=== PATIENT | female | born 1935 | race Caucasian/White ===

== ENCOUNTER 2020-02-08 00:46 | Emergency (ER) | payer MEDICARE, SELFPAY ==
--- NOTE | ~2020-02-08 | XR_ITS ---
EXAMINATION: XR chest 2V DATE: 02/08/2020 01:17 INDICATION: Generalized chest pain TECHNIQUE: AP and lateral views of the chest are obtained. COMPARISON: 07/01/2019 FINDINGS: The lungs are free of acute opacities. There is a chronic subpleural reticular pattern of t he lungs, consistent with chronic interstitial lung disease. There is no pleural effusion or pneumoth orax. The cardiomediastinal silhouette is normal. There is moderate thoracic spondylosis. There are c hanges of right total shoulder arthroplasty. Surgical clips in the right upper quadrant are likely fr om prior cholecystectomy. IMPRESSION: 1. No acute cardiopulmonary abnormality. Reviewed, dictated and finalized at location A.
[2020-02-08 00:41] VITALS: BP 183/89; PULSE 76; RESP 18; TEMP 36.4; O2SAT 99
[2020-02-08 00:46] VITALS: PULSE 75
--- NOTE | 2020-02-08 00:47 | ECG_ITS ---
Measurements Intervals [place] Rate: 74 P: -2 [place]: 134 QRS: -14 QRSD: 81 T: 4 QT: 378 QTc: 420 Interpretive Statements SINUS RHYTHM BORDERLINE ST-T WAVE ABNORMALITY- INF/LAT LEADS BASELINE ARTIFACT- I, II, III, AVR, AVL, AVF BORDERLINE ECG Electronically Signed On 02-08-2020 8:07:20 CDT by Daryl Webster D.O.
[2020-02-08 01:07] LABS: Basophils Absolute Auto 0.1 K/mm3 (0.0-0.1); Basophils Percent Auto 0.8 % (0.2-1.2); Eosinophils Absolute Auto 0.1 K/mm3 (0-0.3); Eosinophils Percent Auto 0.7 % (0-4.4); Hematocrit 36.2 % (37.0-47.0); Hemoglobin 11.4 g/dL (12.0-15.0); Immature Granulocyte Absolute 0.03 K/mm3 (0.00-0.031); Immature Granulocyte Percent A 0.4 % (0-0.5); Lymphocytes Absolute Auto 1.66 K/mm3 (0.9-3.2); Lymphocytes Percent Auto 23.2 % (18.3-44.2); Mean Corpuscular HGB Conc 31.5 g/dl (32-36); Mean Corpuscular Hemoglobin 30.2 pg (26-34); Monocytes Absolute Auto 1.4 K/mm3 (0.1-0.6); Monocytes Percent Auto 19.3 % (2.6-8.5); Neutrophils Percent Auto 55.6 % (45.5-73.1); Platelet Count Result 164 k/mm3 (150-375); Red Blood Count 3.77 M/mm3 (4.2-5.4); White Blood Count 7.2 K/mm3 (4.5-10.0)
--- NOTE | 2020-02-08 01:11 | ED.CHESTPAIN ---
HPI - Chest Pain General Chief Complaint: Chest Pain Stated Complaint: cp/dizziness History of Present Illness HPI narrative: 84 yo female w/ h/o dementia, chf, CKD, Hypertension, IBS, Paroxysmal atrial fibrillation BIBEMS for chest pain. She is an unreliable historian but reports that she had been having pain for a long time. The pain resolved prior to her arrival here and she has no complaints. History limited by dementia Related Data Home Medications Medication Instructions Recorded Confirmed acetaminophen 650 mg 650 mg PO Q12H 06/27/19 tablet,extended release apixaban 2.5 mg tablet 2.5 mg PO BID 06/27/19 Poly-Iron 150 Forte 1 cap PO BID 06/28/19 06/28/19 acetaminophen [Tylenol] 325 mg PO Q4H PRN 06/28/19 06/28/19 aspirin 81 mg PO DAILY 06/28/19 06/28/19 famotidine 20 mg PO BID 06/28/19 06/28/19 midodrine 10 mg PO TID 06/28/19 06/28/19 polyethylene glycol 3350 [Miralax] 17 g PO DAILY 06/28/19 06/28/19 potassium chloride 20 meq PO BID 06/28/19 06/28/19 vitamin [id number] acid 2 tablet PO DAILY 06/28/19 06/28/19 Allergies Allergy/AdvReac Type Severity Reaction Status Date / Time No Known Allergies Allergy Unknown Verified 10/13/19 09:14 Review of Systems Review of Systems: All systems reviewed & are unremarkable except as noted in HPI and below Constitutional: Constitutional: Denies fever(s) Cardiovascular: Cardiovascular: Reports chest pain Respiratory: Respiratory: Denies dyspnea Gastrointestinal: Gastrointestinal: Denies nausea Musculoskeletal: Musculoskeletal: Denies back pain Neurologic: Denies dizziness and Denies weakness [facility] Past Medical History Medical History Anemia Appendicitis Bilateral cataracts Chronic bilateral thoracic back pain Chronic fatigue Chronic kidney disease, stage 3 (moderate) Confusion Diastolic congestive heart failure Eczema Gallbladder disease GI bleed Glaucoma Hx of adenomatous colonic polyps Hypercholesterolemia Hyperlipidemia Hypertension IBS (irritable bowel syndrome) Iron deficiency anemia Mild anemia OAB (overactive bladder) Orthostatic hypotension Orthostatic hypotension Osteoarthritis Paroxysmal atrial fibrillation Paroxysmal atrial fibrillation Status post cardioversion in 2014 x2. No longer on anticoagulation due to recurrent falls. Pneumonia Post menopausal syndrome Primary osteoarthritis of both knees Stenosis of right subclavian artery Vitamin D deficiency Surgical History Surgical History H/O bilateral cataract extraction H/O cataract removal with insertion of prosthetic lens H/O eye surgery Bilateral retinas H/O: hysterectomy History of appendectomy History of appendectomy History of cholecystectomy History of cholecystectomy History of hysterectomy History of right shoulder replacement S/P left knee arthroscopy S/P right rotator cuff repair S/P right rotator cuff repair Family History Family History Father Family history of cardiovascular disease Patient's father is Family history of heart disease in male family member before age 55 Mother Family history of cardiovascular disease Patient's mother is Family history of heart disease in male family member before age 55 Sibling Family history of cardiovascular disease Patient's sister is Family history of heart disease in male family member before age 55 Other Diabetes mellitus Heart disease Hypertension Malignant neoplasm of prostate Social History Social History Social History: The patient is currently at [facility] for rehab. Prior to that, she was living independently. Her son and daughter, Yelena, are her surrogate decision makers. She is listed as a full
[2020-02-08 01:18] LABS: Prothrombin Time 12.6 Seconds (11.1-14.7)
[2020-02-08 01:19] LABS: Partial Thromboplastin Time 28.4 SECONDS (22.3-36.8)
[2020-02-08 01:22] LABS: Blood Urea Nitrogen 23 mg/dL (7-17); Calcium 10.1 mg/dL (8.4-10.2); Carbon Dioxide 22 mmol/L (22-30); Chloride 105 mmol/L (98-107); Estimated Glomerular Filt Rate 47; Glucose 99 mg/dL (65-105); Potassium 4.4 mmol/L (3.4-5.0); Sodium 135 mmol/L (137-145)
[2020-02-08] MEDS: ASPIRIN 81 MG CHEWABLE TABLET 324 MG PO (01:33)
[2020-02-08 01:34] LABS: Troponin I 0.023 ng/mL (0.000-0.034)
[2020-02-08 01:54] VITALS: BP 160/83; PULSE 74; RESP 18; O2SAT 99
[2020-02-08 03:00] VITALS: BP 138/70; PULSE 62; RESP 18; O2SAT 99
[2020-02-08 04:29] LABS: Troponin I 0.019 ng/mL (0.000-0.034)
[2020-02-08 04:41] VITALS: BP 135/72; PULSE 60; RESP 18; O2SAT 96
--- NOTE | 2020-02-08 04:43 | PC.NURSE ---
Daughter called at this time and updated on pt status.
[2020-02-08 05:41] VITALS: BP 129/64; PULSE 64; RESP 18; O2SAT 98
== END 2020-02-08 05:45 ==
PROVIDERS: Emergency Provider Emergency Medicine; PCP Internal Medicine
DX: R07.9 Chest pain, unspecified (principal); I48.0 Paroxysmal atrial fibrillation; I13.0 Hypertensive heart and chronic kidney disease with heart failure and stage 1 through stage 4 chronic kidney disease, or unspecified chronic kidney disease; N18.3 Chronic kidney disease, stage 3 (moderate); I50.30 Unspecified diastolic (congestive) heart failure; Z79.01 Long term (current) use of anticoagulants; K58.9 Irritable bowel syndrome, unspecified; Z79.82 Long term (current) use of aspirin; H40.9 Unspecified glaucoma; E78.00 Pure hypercholesterolemia, unspecified; D50.9 Iron deficiency anemia, unspecified; N32.81 Overactive bladder; M19.90 Unspecified osteoarthritis, unspecified site; E55.9 Vitamin D deficiency, unspecified; Z98.49 Cataract extraction status, unspecified eye; Z96.1 Presence of intraocular lens; Z96.611 Presence of right artificial shoulder joint; R94.31 Abnormal electrocardiogram [ECG] [EKG]
CPT/HCPCS: 36415; 71046; 80048; 84484; 85025; 85610; 85730; 93005; 99284; A9270

== ENCOUNTER 2020-07-07 16:58 | Inpatient (IN) | payer MEDICARE, SELFPAY ==
[2020-07-07] VITALS (9 sets, daily range): BP systolic 112–168; BP diastolic 71–100; PULSE 80–92; RESP 15–24; TEMP 36.2–36.7; O2SAT 87–100; BMI 20.2
--- NOTE | ~2020-07-07 | CT_ITS ---
EXAMINATION: CT brain wo con INDICATION: Altered mental status COMPARISON: 08/24/2019 TECHNIQUE: Standard unenhanced head CT. The dose-length product (DLP) was 605.33 mGy-cm. The mA was a djusted according to patient size. Iterative reconstruction technique was employed. FINDINGS: There is no acute intraparenchymal hemorrhage. No evidence of mass lesion. No evidence of a cute infarction. An old lacunar infarct is noted in the right basal ganglia. There is moderate perive ntricular and subcortical hypodensity probably related to small vessel ischemic disease. There is mod erate prominence of the sulci and ventricles related to cerebral atrophy. Intracranial calcified cere bral atherosclerosis is noted. There are no extra-axial collections. There is no mass effect or midli ne shift. Changes in the globes are likely from ocular lens surgery. The visualized sinuses and masto id air cells are well aerated. IMPRESSION: 1. No acute intracranial abnormality. 2. Age related findings. Reviewed, dictated and finalized at location A. [employer]
--- NOTE | ~2020-07-07 | XR_ITS ---
XR knee LT 3V DATE: 07/07/2020 18:01 INDICATION: Fall. Left knee injury, pain TECHNIQUE: 4 views including Crosstable lateral COMPARISON: 11/16/2008 left knee 04/12/2016 left knee FINDINGS: There is tricompartment osteoarthritis, most pronounced at the medial compartment and moder ately severe loss of joint space at the medial compartment. Diffuse osteopenia. No fracture or dislocation, periosteal reaction or bone destruction, radiopaque intra-articular loose body or chondrocalcinosis or joint effusion is evident. Arterial calcifications. IMPRESSION: Tricompartment osteoarthritis, most pronounced at the medial compartment Osteopenia No recent fracture or dislocation or joint effusion is detected Reviewed, dictated and finalized at location A. OGRAPHIC DRAFTER IMPRESSION: Tricompartment osteoarthritis, most pronounced at the medial compar tment Osteopenia No recent fracture or dislocation or joint effusion is detected
--- NOTE | ~2020-07-07 | XR_ITS ---
EXAMINATION: XR surgery orthopedic DATE: 07/09/2020 16:00 INDICATION: Left hip gamma nailing TECHNIQUE: 7 fluoroscopic images of the left hip were obtained during procedure performed by Dr. Aminta quevedo. Radiologist was not present for the imaging or procedure. The amount of fluoroscopy time used during this procedure was 1.5 minutes. COMPARISON: 07/07/2020 FINDINGS: Interval open reduction and internal fixation of an intratrochanteric fracture of the proximal left f emur. Fractures fixed with an antegrade intramedullary agustin with femoral neck dynamic compression scre w and distal interlocking screw. Alignment appears near-anatomic. No other fractures identified. Mild osteoarthritis at the left hip. IMPRESSION: 1. Near-anatomic alignment post ORIF of an intratrochanteric fracture of the proximal left femur. See procedure note for further detail. Reviewed, dictated and finalized at [facility]. ER/WAITRESS TAVERN IMPRESSION: 1. Near-anatomic alignment post ORIF of an intratrochanteric fracture of the pr oximal left femur. See procedure note for further detail.
--- NOTE | ~2020-07-07 | XR_ITS ---
EXAMINATION: XR chest 2V DATE: 07/16/2020 13:03 INDICATION: Leukocytosis. TECHNIQUE: Frontal and lateral views of the chest were obtained. COMPARISON: Chest single view 07/13/2020, chest CT 01/13/2007, chest 2 views 02/08/2020 FINDINGS: The patient is rotated to her right. The lung volumes are normal. There is a diffuse inters titial pattern in the lungs. No pleural effusion or pneumothorax. The heart size is normal. Surgical clips in the right upper quadrant are likely from cholecystectomy. There is a total right shoulder ar throplasty. Again seen is a burst fracture of T11. There is a burst fracture of L1 without change fro m 07/13/20, new from 02/08/2020. IMPRESSION: 1. Chronic diffuse interstitial pattern in the lungs, likely mild chronic interstitial lung disease. Reviewed, dictated and finalized at location A. S AND SERVICE ENGINEER IMPRESSION: 1. Chronic diffuse interstitial pattern in the lungs, likely mild chronic inter stitial lung disease.
--- NOTE | ~2020-07-07 | XR_ITS ---
XR hip LT 2V w AP pelvis DATE: 07/07/2020 18:00 INDICATION: Fall. Left hip pain. TECHNIQUE: AP pelvis. AP and crosstable lateral views of left hip. COMPARISON: 06/28/2019 pelvis and right hip FINDINGS: Diffuse osteopenia. Normal alignment at the pubic symphysis and sacroiliac joints. No pelvic fracture is evident. Compression screw and agustin of proximal right femur for internal fixation of previous comminuted intert rochanteric right proximal femoral fracture of 06/28/2019. There is an acute comminuted intertrochanteric fracture of the left hip with varus deformity. IMPRESSION: Comminuted intertrochanteric left hip fracture with varus deformity Diffuse osteopenia Status post ORIF right intertrochanteric hip fracture Reviewed, dictated and finalized at location A. [employer] FI[employer] TECHNICIAN
--- NOTE | ~2020-07-07 | XR_ITS ---
EXAMINATION: XR chest 1V portable DATE: 07/13/2020 06:29 INDICATION: Crackles on lung auscultation. Sepsis. COVID-19 negative on 07/12/2020. TECHNIQUE: A single frontal view of the chest was obtained. COMPARISON: Chest 2 views 02/08/2020, chest single view 07/01/2019, chest CT 01/13/2007 FINDINGS: The patient is rotated to her right. The lung volumes are normal. There is a diffuse inters titial pattern in the lungs with chronic architectural distortion in right midlung zone. No pleural e ffusion or pneumothorax. The heart size is normal. There is a right shoulder arthroplasty. Surgical c lips in the right upper quadrant are likely from cholecystectomy. IMPRESSION: 1. Worsened diffuse interstitial pattern in the lungs, likely a combination of mild pulmonary edema a nd chronic interstitial lung disease. Reviewed, dictated and finalized at location A. TRICAL TECH IMPRESSION: 1. Worsened diffuse interstitial pattern in the lungs, likely a combination of mild pulmonary edema and chronic interstitial lung disease.
--- NOTE | 2020-07-07 17:28 | ED.FALL ---
HPI - Fall General Chief Complaint: Fall Stated Complaint: FALL/LEG PAIN Time Seen by Provider: 07/07/20 17:05 Source: patient Mode of arrival: EMS Limitations: no limitations History of Present Illness HPI Narrative: Patient is an 84-year-old female complaining of left hip and left knee pain after she slipped and fell landing on her left side tonight. Patient states her pain is an 8 out of 10, aching, nonradiating. Patient denies any symptoms prior to the fall. Patient denies any head, neck, chest, back, abdomen or any other extremity pain/injury. Related Data Home Medications Medication Instructions Recorded Confirmed acetaminophen 650 mg 650 mg PO Q12H 06/27/19 07/07/20 tablet,extended release Poly-Iron 150 Forte 1 cap PO BID 06/28/19 07/07/20 polyethylene glycol 3350 [Miralax] 17 g PO DAILY 06/28/19 07/07/20 vitamin V36-rqmbz acid 2 tablet PO DAILY 06/28/19 07/07/20 ferrous sulfate 07/07/20 Allergies Allergy/AdvReac Type Severity Reaction Status Date / Time No Known Allergies Allergy Unknown Verified 10/13/19 09:14 Review of Systems Review of Systems: All systems reviewed & are unremarkable except as noted in HPI and below Constitutional: Constitutional: Denies body ache(s), Denies chills, Denies excessive sweating, Denies fatigue, Denies fever(s), Denies headache(s), Denies lethargy, Denies malaise, Denies weakness and Denies weight loss Eyes: Eyes: Denies blurry vision, Denies change in vision and Denies loss of vision ENT: Denies dizziness, Denies ear discharge, Denies headache(s), Denies lip swelling, Denies epistaxis, Denies nasal congestion, Denies neck pain, Denies throat swelling and Denies tongue swelling Cardiovascular: Cardiovascular: Denies chest pain, Denies chest pain at rest, Denies chest pain with activity, Denies diaphoresis, Denies rapid heart rate, Denies edema, Denies irregular heart rhythm, Denies lightheadedness, Denies palpitations, Denies dyspnea and Denies dyspnea on exertion Respiratory: Respiratory: Denies chest congestion, Denies cough, Denies hemoptysis, Denies dyspnea and Denies dyspnea on exertion Gastrointestinal: Gastrointestinal: Denies abdominal pain, Denies melena, Denies hematochezia, Denies diarrhea, Denies nausea, Denies vomiting and Denies hematemesis Musculoskeletal: Musculoskeletal: Denies deformity, Denies joint swelling, Denies neck pain and Denies numbness Neurologic: Denies Abnormal speech present, Denies confusion, Denies dizziness, Denies headache(s), Denies focal weakness, Denies loss of vision, Denies numbness, Denies Other visual disturbances, Denies Sensory deficit (Neuro) and Denies weakness Psychiatric: Psychiatric: Denies confusion, Denies depression, Denies auditory hallucinations, Denies homicidal ideation and Denies suicidal ideation Endocrine: Endocrine: Denies cold intolerance, Denies excessive sweating, Denies fatigue, Denies heat intolerance and Denies palpitations Hematologic/Lymphatic: Hematologic/Lymphatic: Denies easy bleeding and Denies easy bruising Allergic/Immunologic: Allergic/Immunologic: Denies lip swelling, Denies throat swelling and Denies tongue swelling [facility] Past Medical History Medical History (Updated 07/07/20 @ 20:24 by Elan Larios MD) Anemia Appendicitis Bilateral cataracts Chronic bilateral thoracic back pain Chronic fatigue Chronic kidney disease, stage 3 (moderate) Confusion Diastolic congestive heart failure Eczema Gallbladder disease GI bleed Glaucoma Hx of adenomatous colonic polyps Hypercholesterolemia Hyperlipidemia Hypertension IBS (irritable bowel syndrome) Iron deficiency anemia Mild anemia OAB (overactive bladder) Orthostatic hypotension Orthostatic hypotension Osteoarthritis Paroxysmal atrial fibrillation Paroxysmal atrial fibrillation Status post cardioversion in 2014 x2. No longer on anticoagulation due to recurrent falls. Pneumonia Post menopausal syndrome Primary osteoarthritis of both knee
[2020-07-07] MEDS: ONDANSETRON INJ 4 MG/2 ML VIAL IV PUSH (18:14)
--- NOTE | 2020-07-07 18:15 | PC.NURSE ---
Pt returns from xray, meds given IVP. Note now that left leg is shortened and slightly rotated externally. Pulse present.
[2020-07-07] MEDS: HYDROmorphone HCL INJ (*CRX) 1 MG/ML SYR 0.5 MG IV PUSH (18:16)
--- NOTE | 2020-07-07 18:25 | PC.NURSE ---
Note while drawing patient's blood that her pulse oximetry dropped to 88-89% on room air. Pt placed on o2 at 2L/nc. Dr. Larios made aware.
[2020-07-07 18:47] LABS: Prothrombin Time 13.4 Seconds (11.1-14.7)
[2020-07-07 18:48] LABS: Partial Thromboplastin Time 28.1 SECONDS (22.3-36.8)
[2020-07-07 18:49] LABS: Alanine Aminotransferase 14 U/L (4-35); Albumin Level 3.9 g/dL (3.5-5.1); Alkaline Phosphatase 157 U/L (38-126); Anion Gap 9 mmol/L (8-16); Aspartate Amino Transferase 25 U/L (14-36); Bilirubin,Total 0.4 mg/dL (0.2-1.3); Blood Urea Nitrogen 27 mg/dL (7-17); Calcium 9.4 mg/dL (8.4-10.2); Carbon Dioxide 24 mmol/L (22-30); Chloride 105 mmol/L (98-107); Estimated CRCL calculation 23 ml/min; Estimated Glomerular Filt Rate 43; Glucose 119 mg/dL (65-105); Potassium 4.5 mmol/L (3.4-5.0); Sodium 138 mmol/L (137-145)
[2020-07-07 19:01] LABS: Basophils Percent Auto 0.2 % (0.2-1.2); Eosinophils Percent Auto 0.2 % (0-4.4); Hemoglobin 10.7 g/dL (12.0-15.0); Immature Granulocyte Percent A 1.5 % (0-0.5); Lymphocytes Absolute Auto 0.84 K/mm3 (0.9-3.2); Lymphocytes Percent Auto 6.1 % (18.3-44.2); Mean Corpuscular HGB Conc 31.5 g/dl (32-36); Mean Corpuscular Hemoglobin 29.7 pg (26-34); Mean Corpuscular Volume 94.4 fl (80-100); Mean Platelet Volume 12.4 fl (7.4-10.4); Monocytes Absolute Auto 2.1 K/mm3 (0.1-0.6); Monocytes Percent Auto 15.2 % (2.6-8.5); Neutrophils Absolute Auto 10.5 K/mm3 (1.3-6.7); Neutrophils Percent Auto 76.8 % (45.5-73.1); Platelet Count Result 223 k/mm3 (150-375); Red Cell Distribution Width 15.1 % (11.5-14.5); White Blood Count 13.7 K/mm3 (4.5-10.0)
--- NOTE | 2020-07-07 19:32 | PC.NURSE ---
Report to CHUCK Squires, to continue care.
--- NOTE | 2020-07-07 20:53 | ECG_ITS ---
Measurements Intervals [place] Rate: 93 P: 12 [place]: 114 QRS: 15 QRSD: 74 T: 18 QT: 350 QTc: 437 Interpretive Statements SINUS RHYTHM WITH SHORT WI INTERVAL BORDERLINE ST ABNORMALITY- ANTEROLATERAL LEADS BASELINE ARTIFACT- I, II, III, AVR, AVL, AVF BORDERLINE ECG Electronically Signed On 07-08-2020 8:05:10 [employer]HER [employer] CRUSHER by Daryl Webster D.O.
[2020-07-07] MEDS: LORazepam INJ (*CRX) 2 MG/ML VIAL 0.5 MG IV PUSH (21:05)
--- NOTE | 2020-07-07 21:30 | PM.IMHP ---
H&P: HPI History of Present Illness Date/Time: 07/07/20 21:30 Chief complaint: Left Hip Fracture Narrative: This is an 84 year old female with known paroxysmal atrial fibrillation who has not been compliant with her anticoagulants, HTN, hyperlipidemia, and Diastolic heart failure who presented to the hospital today after suffering a fall onto her left side today at Assisted Living. Apparently the patient was found on the ground and she believes that she just slipped. She denies any head trauma or loss of consciousness. The patient could not ambulate after her fall. She denies any other associated symptoms such as chest pain, palpitations, shortness of breath, cough, fevers, chills, nausea, vomiting, abdominal pain, dysuria, diarrhea or rectal bleeding. Hip xray films demonstrated a comminuted intertrochanteric left hip fracture with varus deformity. Orthopedic Surgeon has been consulted by ER provider. During my encounter with the patient she has no other complaints. Review of Systems Review of Systems: All systems reviewed & are unremarkable except as noted in HPI and below PMFSH Past Medical History Medical History Anemia Appendicitis Bilateral cataracts Chronic bilateral thoracic back pain Chronic fatigue Chronic kidney disease, stage 3 (moderate) Confusion Diastolic congestive heart failure Eczema Gallbladder disease GI bleed Glaucoma Hx of adenomatous colonic polyps Hypercholesterolemia Hyperlipidemia Hypertension IBS (irritable bowel syndrome) Iron deficiency anemia Mild anemia OAB (overactive bladder) Orthostatic hypotension Orthostatic hypotension Osteoarthritis Paroxysmal atrial fibrillation Paroxysmal atrial fibrillation Status post cardioversion in 2014 x2. No longer on anticoagulation due to recurrent falls. Pneumonia Post menopausal syndrome Primary osteoarthritis of both knees Stenosis of right subclavian artery Vitamin D deficiency Surgical History Surgical History H/O bilateral cataract extraction H/O cataract removal with insertion of prosthetic lens H/O eye surgery Bilateral retinas H/O: hysterectomy History of appendectomy History of appendectomy History of cholecystectomy History of cholecystectomy History of hysterectomy History of right shoulder replacement S/P left knee arthroscopy S/P right rotator cuff repair S/P right rotator cuff repair Family History Family History Father Family history of heart disease in male family member before age 55 Family history of cardiovascular disease Patient's father is Mother Family history of heart disease in male family member before age 55 Family history of cardiovascular disease Patient's mother is Sibling Family history of heart disease in male family member before age 55 Family history of cardiovascular disease Patient's sister is Social History Social History Social History: The patient is currently at [facility] for rehab. Prior to that, she was living independently. Her son and daughter, Yelena, are her surrogate decision makers. She is listed as a full code. Her primary care provider is Dr. Mandy Malin. Smoking status: Never smoker Second hand tobacco smoke exposure: Yes Alcohol intake: former Drinks per week: 1 Substance use: never Substance use type: does not use Additional living arrangements comments: Pt lives at [facility]. Gender identity (if verbalized by the patient): Female Spiritual care concerns: No Agree to blood products: Yes Meds Home Medications and Allergies Home Medications Medication Instructions Recorded Confirmed Type acetaminophen 650 mg 650 mg PO QID PRN 1
--- NOTE | 2020-07-07 21:51 | ADMGEN ---
This patient, Kathrin Ovalle, was admitted to Medical Room 248-. Patient/family oriented to hospital policies and general routines including ID bracelet, bed and alarms, visiting hours, pain management, procedures, bathroom and other care routines, personal items, smoking policy, room service/diet, and visiting hours. Information on how to activate the Rapid Response Team has been discussed. Patient/Family are encouraged to report perceived risks to care and to ask questions if they do not understand what they are told or what they should do.
[2020-07-07] MEDS: LACTATED RINGERS 1,000 ML 75 ML IV CONT (22:05)
[2020-07-08 06:00] VITALS: BP 131/60; PULSE 82; RESP 16; TEMP 36.6; O2SAT 93
[2020-07-08] MEDS: LACTATED RINGERS 1,000 ML 75 ML IV CONT ×2 (10:19→21:48)
--- NOTE | 2020-07-08 10:20 | PM.CNOR ---
Assessment and Plan Assessment and plan (1) Intertrochanteric fracture of left femur: Qualifiers: Encounter type: initial encounter Fracture alignment: displaced Fracture type: closed Qualified Code(s): S72.142A - Displaced intertrochanteric fracture of left femur, initial encounter for closed fracture Code(s): S72.142A - Displaced intertrochanteric fracture of left femur, initial encounter for closed fracture Status: Acute Assessment and Plan: Patient is a pleasant 84-year-old female with a history of dementia, diastolic heart failure, CKD, hypertension, IBS, and paroxysmal atrial fibrillation. Radiographs reveal displaced intertrochanteric left femur fracture. She has a history right ORIF of intertrochanteric hip fracture. The patient would benefit from ORIF again the nail of left intertrochanteric hip fracture. Plan for surgery tomorrow. Will speak with patients son. Thank you for the consult. History of Present Illness HPI Consult date: 07/08/20 Requesting physician: Elan Larios MD Consult reason: fracture Chief complaint: Left Hip Fracture Narrative: Patient is an 84-year-old female who was admitted 07/08/2020 for left hip fracture after falling.. She has a history of diastolic heart failure, CKD, Hypertension, IBS, dementia, and Paroxysmal atrial fibrillation. Unable to obtain detailed history due to patient's mental status. Patient is from assisted living. She complains of left hip pain. She has no other complaints at this time. Review of Systems Review of Systems: ROS unobtainable: Yes unobtainable due to mental status PMFSH Past Medical History Medical History Anemia Appendicitis Bilateral cataracts Chronic bilateral thoracic back pain Chronic fatigue Chronic kidney disease, stage 3 (moderate) Confusion Diastolic congestive heart failure Eczema Gallbladder disease GI bleed Glaucoma Hx of adenomatous colonic polyps Hypercholesterolemia Hyperlipidemia Hypertension IBS (irritable bowel syndrome) Iron deficiency anemia Mild anemia OAB (overactive bladder) Orthostatic hypotension Orthostatic hypotension Osteoarthritis Paroxysmal atrial fibrillation Paroxysmal atrial fibrillation Status post cardioversion in 2014 x2. No longer on anticoagulation due to recurrent falls. Pneumonia Post menopausal syndrome Primary osteoarthritis of both knees Stenosis of right subclavian artery Vitamin D deficiency Surgical History Surgical History H/O bilateral cataract extraction H/O cataract removal with insertion of prosthetic lens H/O eye surgery Bilateral retinas H/O: hysterectomy History of appendectomy History of appendectomy History of cholecystectomy History of cholecystectomy History of hysterectomy History of right shoulder replacement S/P left knee arthroscopy S/P right rotator cuff repair S/P right rotator cuff repair Family History Family History Father Family history of heart disease in male family member before age 55 Family history of cardiovascular disease Patient's father is Mother Family history of heart disease in male family member before age 55 Family history of cardiovascular disease Patient's mother is Sibling Family history of heart disease in male family member before age 55 Family history of cardiovascular disease Patient's sister is Social History Social History Social History: The patient is currently at [facility] for rehab. Prior to that, she was living independently. Her son and daughter, Yelena, are her surrogate decision makers. She is listed as a full code. Her primary care provider is Dr. Mandy Malin. Smoking status: Never s
--- NOTE | 2020-07-08 13:27 | WPDANESEPPF ---
Anes - Initial Pre Proc Eval Procedure: Operation Date: 07/09/20 14:30 Proposed Procedures p Left Hip Gamma Nail - Rusty Arredondo MD Date/Time: 07/08/20 13:27 Surgeon: Samantha Jones NP Pre Op Diagnosis: Left Hip Fracture Patient Data Age: 84 Gender: F Height: 1.55 m Weight: 48.6 kg Last Vital Signs Temp 36.6 C 07/08/20 06:00 Pulse 82 07/08/20 06:00 Resp 16 07/08/20 06:00 BP 131/60 07/08/20 06:00 Pulse Ox 93 07/08/20 06:00 Allergies Allergy/AdvReac Type Severity Reaction Status Date / Time No Known Allergies Allergy Unknown Verified 07/07/20 23:42 Home Medications Medication Instructions Recorded Confirmed Type acetaminophen 650 mg 650 mg PO QID PRN 06/27/19 07/07/20 History tablet,extended release polyethylene glycol 3350 [Miralax] 17 g PO DAILY 06/28/19 07/07/20 History docusate sodium 100 mg capsule 100 mg PO BID 30 Days #60 cap 03/16/20 07/07/20 Rx Arnuity Ellipta 100 mcg INHALATION DAILY 07/07/20 07/07/20 History cholecalciferol (vitamin D3) 2,000 unit PO DAILY 07/07/20 07/07/20 History ferrous sulfate 325 mg PO BID 07/07/20 07/07/20 History lovastatin 40 mg PO HS 07/07/20 07/07/20 History midodrine 10 mg PO TID 07/07/20 07/07/20 History potassium chloride 20 meq PO BID 07/07/20 07/07/20 History Laboratory Tests 07/07/20 07/07/20 07/07/20 18:26 18:26 18:26 WBC 13.7 K/mm3 H K/mm3 (4.5-10.0) RBC 3.60 M/mm3 L M/mm3 (4.2-5.4) Hgb 10.7 g/dL L g/dL (12.0-15.0) Hct 34.0 % L % (37.0-47.0) MCV 94.4 fl fl (80-100) MCH 29.7 pg pg (26-34) MCHC 31.5 g/dl L g/dl (32-36) RDW 15.1 % H % (11.5-14.5) Plt Count 223 k/mm3 k/mm3 (150-375) MPV 12.4 fl H fl (7.4-10.4) Immature Gran % (Auto) 1.5 % H % (0-0.5) Neut % (Auto) 76.8 % H % (45.5-73.1) Lymph % (Auto) 6.1 % L % (18.3-44.2) [place] % (Auto) 15.2 % H % (2.6-8.5) Eos % (Auto) 0.2 % % (0-4.4) Baso % (Auto) 0.2 % % (0.2-1.2) Lymph # (Auto) 0.84 K/mm3 L K/mm3 (0.9-3.2) [place] # (Auto) 2.1 K/mm3 H K/mm3 (0.1-0.6) Eos # (Auto) 0.0 K/mm3 K/mm3 (0-0.3) Baso # (Auto) 0.0 K/mm3 K/mm3 (0.0-0.1) Abs Immat Gran (auto) 0.20 K/mm3 H K/mm3 (0.00-0.031) Absolute Neuts (auto) 10.5 K/mm3 H K/mm3 (1.3-6.7) Absolute Nucleated RBC 0.0 K/mm3 K/mm3 (0.0-0.012) Nucleated RBC % 0.0 % % (0.0-0.2) PT 13.4 Seconds Seconds (11.1-14.7) INR 1.0 APTT 28.1 SECONDS SECONDS (22.3-36.8) Sodium 138 mmol/L mmol/L (137-145) Potassium 4.5 mmol/L mmol/L (3.4-5.0) Chloride 105 mmol/L mmol/L (98-107) Carbon Dioxide 24 mmol/L mmol/L (22-30) Anion Gap 9 mmol/L mmol/L (8-16) BUN 27 mg/dL H mg/dL (7-17) Creatinine 1.20 mg/dL H mg/dL (0.7-1.0) Estim Creat Clear Calc 23 ml/min ml/min Estimated GFR 43 L (59 - ) Glucose 119 mg/dL H mg/dL (65-105) Calcium 9.4 mg/dL mg/dL (8.4-10.2) Total Bilirubin 0.4 mg/dL mg/dL (0.2-1.3) AST 25 U/L U/L (14-36) ALT 14 U/L U/L (4-35) Alkaline Phosphatase 157 U/L H U/L (38-126) Total Protein 7.0 g/dL g/dL (6.3-8.2) Albumin 3.9 g/dL g/dL (3.5-5.1) ECG: Date of Service: 07/07/20 Procedure(s): CA 12 lead EKG Accession Number(s): [id number] cc: ~ Measurements Intervals [place] Rate: 93 P: 12 WV: 114 QRS: 15 QRSD: 74 T: 18 QT: 350 QTc: 437
[2020-07-08 14:00] VITALS: BP 149/82; PULSE 94; RESP 14; TEMP 37; O2SAT 99
[2020-07-08 14:17] VITALS: BMI 20.2
--- NOTE | 2020-07-08 17:09 | PM.CNOR ---
Assessment and Plan Assessment and plan (1) Intertrochanteric fracture of left femur: Qualifiers: Encounter type: initial encounter Fracture alignment: displaced Fracture type: closed Qualified Code(s): S72.142A - Displaced intertrochanteric fracture of left femur, initial encounter for closed fracture Code(s): S72.142A - Displaced intertrochanteric fracture of left femur, initial encounter for closed fracture Status: Acute Assessment and Plan: Displaced intertrochanteric fracture. Will benefit from closed reduction and intramedullary nailing. I discussed the procedure and its risks with the patient's son. He expressed concerns due to her difficult postoperative rehab recovery after the contralateral hip surgery. Despite the risks we agreed that stabilization of the fracture and early mobilization is in the patient's best interest. Risks, benefits, and alternatives to surgery reviewed. History of Present Illness HPI Consult date: 07/08/20 Chief complaint: Left Hip Fracture Narrative: Patient complains of acute hip pain. Fell from standing height. Admitted through the emergency room for definitive managmenet. No previous hip pain. Comfortable at rest. No numbness, tingling, or other associated symptoms. Review of Systems Review of Systems: Narrative: [ Denies loss of consciousness.] ROS unobtainable: Yes unobtainable due to mental status PMFSH Past Medical History Medical History Anemia Appendicitis Bilateral cataracts Chronic bilateral thoracic back pain Chronic fatigue Chronic kidney disease, stage 3 (moderate) Confusion Dementia Diastolic congestive heart failure Eczema Gallbladder disease GI bleed Glaucoma Hx of adenomatous colonic polyps Hypercholesterolemia Hyperlipidemia Hypertension IBS (irritable bowel syndrome) Iron deficiency anemia Mild anemia OAB (overactive bladder) Orthostatic hypotension Orthostatic hypotension Osteoarthritis Paroxysmal atrial fibrillation Paroxysmal atrial fibrillation Status post cardioversion in 2014 x2. No longer on anticoagulation due to recurrent falls. Pneumonia Post menopausal syndrome Primary osteoarthritis of both knees Stenosis of right subclavian artery TIA (transient ischemic attack) Vitamin D deficiency Surgical History Surgical History H/O bilateral cataract extraction H/O cataract removal with insertion of prosthetic lens H/O eye surgery Bilateral retinas H/O: hysterectomy History of appendectomy History of appendectomy History of cholecystectomy History of cholecystectomy History of hysterectomy History of right shoulder replacement S/P left knee arthroscopy S/P right rotator cuff repair S/P right rotator cuff repair Family History Family History Father Family history of heart disease in male family member before age 55 Family history of cardiovascular disease Patient's father is Mother Family history of heart disease in male family member before age 55 Family history of cardiovascular disease Patient's mother is Sibling Family history of heart disease in male family member before age 55 Family history of cardiovascular disease Patient's sister is Social History Social History Social History: The patient is currently at [facility] for rehab. Prior to that, she was living independently. Her son and daughter, Yelena, are her surrogate decision makers. She is listed as a full code. Her primary care provider is Dr. Mandy Malin. Smoking status: Never smoker Second hand tobacco smoke exposure: Yes Alcohol intake: former Drinks per week: 1 Substance use: never Substance use type: does not use
--- NOTE | 2020-07-08 19:05 | PM.IMPN ---
Progress Note: A&P Assessment and Plan (1) Intertrochanteric fracture of left femur: Qualifiers: Encounter type: initial encounter Fracture alignment: displaced Fracture type: closed Qualified Code(s): S72.142A - Displaced intertrochanteric fracture of left femur, initial encounter for closed fracture Code(s): S72.142A - Displaced intertrochanteric fracture of left femur, initial encounter for closed fracture Status: Acute Assessment and Plan: admit to med surg, regular diet today NPO for surgery tomorrow pain control as needed IV hydration, antiemetics as needed, Talbot catheter in place, ortho consulted and surgery decided on for tomorrow. (2) Leukocytosis: Qualifiers: Leukocytosis type: unspecified Qualified Code(s): D72.829 - Elevated white blood cell count, unspecified Code(s): D72.829 - Elevated white blood cell count, unspecified Status: Acute Assessment and Plan: secondary to UTI and acute fall and trauma. see plan for previous UTI with treatment started today, noted below. Monitor CBC repeated in morning. (3) Chronic anemia: Code(s): D64.9 - Anemia, unspecified Status: Chronic Assessment and Plan: Likely anemia of chronic disease no signs of acute blood loss, monitor H&H, continue home daily Iron dosing transfuse p.r.n. (4) Diastolic congestive heart failure: Qualifiers: Heart failure chronicity: chronic Qualified Code(s): I50.32 - Chronic diastolic (congestive) heart failure Code(s): I50.30 - Unspecified diastolic (congestive) heart failure Status: Chronic Assessment and Plan: Currently compensated. Monitor fluid status. Restart home medications after surgery. (5) Hypercholesterolemia: Code(s): E78.00 - Pure hypercholesterolemia, unspecified Status: Chronic Assessment and Plan: Resume statin therapy when possible after surgery.. (6) UTI due to extended-spectrum beta lactamase (ESBL) producing Escherichia coli: Code(s): N39.0 - Urinary tract infection, site not specified; B96.29 - Other Escherichia coli [E. 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 Martines.(documentation in paper chart) 07/08 repeated UA and Urine culture then started on IV antibiotics. 07/08 started on IV Zosyn, limited antibiotics sensitive per review of 07/05 sensitivities faxed to us WBC 13.7 at admission, repeating in morning no fevers noted. creatinine 1.2 continue IVFs LR at 75 ml/hr monitor strict I and Os. Follow up on intake/output, renal function, and today's cultures. Additional Plan The patient will likely need at least 2 nights of inpatient medical therapy for her acute left hip fracture date of service was July 07, 2020 at approximately 9:00 p.m. Subjective Date/time seen: 07/08/20 19:05 Patient follows simple commands, such as open your eyes , but was not otherwise answering my questions. She tolerated nursing staff turning her for clean up and chico care; with some discomfort noted when near side of fracture. Her WBC 13.7 at admission, repeating in morning. No fevers noted. 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 Martines.(documentation in paper chart). 07/08 started on IV Zosyn, limited antibiotics sensitivities per review of 07/05 sensitivities faxed to us. Also, repeated UA and Urine culture then started on IV antibiotics. Creatinine 1.2. Review of Systems Review of Systems: All systems reviewed & are unremarkable except as noted in HPI and below ROS unobtainable: Yes unobtainable due to medical condition and unobtainable due to mental status Constitutional: Constitutional: Reports as per HPI
[2020-07-08 19:14] LABS: Add Urine Microscopic? YES; Appearance Urine Cloudy (Clear); Bacteria Urine Trace /hpf; Bilirubin Urine Negative (Negative); Blood Urine 1+ (Negative); Color Urine Yellow (Yellow); Glucose Urine UA Negative (Negative); Ketones Urine Negative (Negative); Leukocyte Esterase Ur 3+ LEU/UL (NEGATIVE); Mucus Urine Rare /lpf; Nitrate Urine Negative (Negative); Protein Urine 1+ mg/dL (Negative); Specific Grav Ur 1.015 (1.001-1.035); WBC Urine >75 /hpf (0-3)
[2020-07-08 21:22] VITALS: BP 123/72; PULSE 98; RESP 16; TEMP 37.2; O2SAT 91
[2020-07-09] VITALS (16 sets, daily range): BP systolic 102–148; BP diastolic 60–82; PULSE 76–89; RESP 14–20; TEMP 36.1–37.1; O2SAT 94–100
[2020-07-09 05:35] LABS: Hematocrit 28.9 % (37.0-47.0); Hemoglobin 9.1 g/dL (12.0-15.0); Mean Corpuscular HGB Conc 31.5 g/dl (32-36); Mean Corpuscular Hemoglobin 30.1 pg (26-34); Mean Corpuscular Volume 95.7 fl (80-100); Mean Platelet Volume 12.9 fl (7.4-10.4); Platelet Count Result 155 k/mm3 (150-375); Red Blood Count 3.02 M/mm3 (4.2-5.4); Red Cell Distribution Width 15.4 % (11.5-14.5); White Blood Count 18.1 K/mm3 (4.5-10.0)
[2020-07-09 05:50] LABS: Lactic Acid Reflex 0.8 mmol/L (0.7-2.1)
[2020-07-09 05:59] LABS: Alanine Aminotransferase 12 U/L (4-35); Albumin Level 3.3 g/dL (3.5-5.1); Alkaline Phosphatase 122 U/L (38-126); Anion Gap 5 mmol/L (8-16); Aspartate Amino Transferase 22 U/L (14-36); Bilirubin,Total 0.8 mg/dL (0.2-1.3); Blood Urea Nitrogen 21 mg/dL (7-17); Calcium 9.2 mg/dL (8.4-10.2); Carbon Dioxide 28 mmol/L (22-30); Chloride 104 mmol/L (98-107); Estimated CRCL calculation 26 ml/min; Estimated Glomerular Filt Rate 47; Glucose 127 mg/dL (65-105); Potassium 3.8 mmol/L (3.4-5.0); Sodium 137 mmol/L (137-145)
[2020-07-09 06:18] LABS: INR 1.1; Prothrombin Time 14.9 Seconds (11.1-14.7)
[2020-07-09 06:27] LABS: Band Neutrophils Percent 5 % (0-6); Lymphocytes Absolute Manual 1.44 K/mm3 (1.1-4.5); Monocytes Absolute Manual 3.25 K/mm3 (0.1-0.90); Monocytes Percent Manual 18 % (3-9); Neutrophils Absolute Manual 13.39 K/mm3 (1.7-7.2); Neutrophils Percent Manual 69 % (46-73); Platelet Estimate Adequate (Adequate); Total Cells Counted 100
--- NOTE | 2020-07-09 07:17 | WPDHPUPDATE1 ---
History and Physical Update Update Date/Time: 07/09/20 07:17 History and Physical has been reviewed, including an updated exam of the patient. There are NO changes in the patient's condition. Risks, benefits, and alternatives have been discussed and questions answered. Patient agrees to proceed with procedure.
--- NOTE | 2020-07-09 12:50 | PC.NURSE ---
To OR via bed. Daniel Michel notified.
[2020-07-09] MEDS: LACTATED RINGERS 1,000 ML 30 ML IV CONT (13:39)
[2020-07-09] MEDS: KETOROLAC 15 MG/ML VIAL (*BKC) IV PUSH (14:33)
[2020-07-09] MEDS: TRANEXAMIC ACID 1,000MG/ISO100 1,000 MG/100 ML BAG 200 MG IVPB (14:42)
--- NOTE | 2020-07-09 16:27 | PM.IMPN ---
Progress Note: A&P Assessment and Plan (1) Intertrochanteric fracture of left femur: Qualifiers: Encounter type: initial encounter Fracture alignment: displaced Fracture type: closed Qualified Code(s): S72.142A - Displaced intertrochanteric fracture of left femur, initial encounter for closed fracture Code(s): S72.142A - Displaced intertrochanteric fracture of left femur, initial encounter for closed fracture Status: Acute Assessment and Plan: -----S/P surgical fixation POD 0. No op note in currently. Pt had no immediate complications. Continue with ortho recommendations with pain medications, anticoagulation, and PT/OT. (2) UTI due to extended-spectrum beta lactamase (ESBL) producing Escherichia coli: Code(s): N39.0 - Urinary tract infection, site not specified; B96.29 - Other Escherichia coli [E. coli] as the cause of diseases classified elsewhere; Z16.12 - Extended spectrum beta lactamase (ESBL) resistance Status: Acute Assessment and Plan: -------treating ESBL E.Coli Urine Culture from 07/05/2020 seen in the EMR under scanned documents. It is sensative to ertapenem, Macrobid, gentamicin, meropenem, Zosyn. Will continue Zosyn at this time and await new urine culture. (3) Leukocytosis: Qualifiers: Leukocytosis type: unspecified Qualified Code(s): D72.829 - Elevated white blood cell count, unspecified Code(s): D72.829 - Elevated white blood cell count, unspecified Status: Acute Assessment and Plan: -------secondary to UTI and acute fall and trauma. (4) Chronic anemia: Code(s): D64.9 - Anemia, unspecified Status: Chronic Assessment and Plan: ------Likely anemia of chronic disease no signs of acute blood loss, will monitor H&H especially after surgery (5) Diastolic congestive heart failure: Qualifiers: Heart failure chronicity: chronic Qualified Code(s): I50.32 - Chronic diastolic (congestive) heart failure Code(s): I50.30 - Unspecified diastolic (congestive) heart failure Status: Chronic Assessment and Plan: -----Currently compensated, monitor fluid status (6) Hypercholesterolemia: Code(s): E78.00 - Pure hypercholesterolemia, unspecified Status: Chronic Assessment and Plan: -----will resume statin therapy after discharge Time Spent With Patient Time with patient: 25 - 35 minutes Subjective Date/time seen: 07/09/20 16:27 Interval history: Pt is a 84-year-old female here for left hip fracture. Patient was seen today in PACU right out of surgery so she was unable to answer any of questions. Nursing staff state there were no immediate complications. Review of Systems Review of Systems: All systems reviewed & are unremarkable except as noted in HPI and below Exam Narrative: Exam Narrative: General: Well developed well nourished patient in NAD HEENT: normocephalic Neck: supple Neuro: currently under anesthesia CV:RRR with a harsh 3/6 systolic murmur at the MPI Resp:CTA from anterior chest Abd: Soft, non distended. No pain to palpation. Positive bowel sounds Extremities: Left leg wrapped with Jhonny wrap with no evidence of bleeding. Pulses intact Objective Data Vital Signs Vital Signs: Vital Signs - 24 hr 07/08/20 21:22 07/09/20 02:00 07/09/20 06:00 Temperature 99.0 F 98.8 F 98.5 F Pulse Rate 98 88 85 Respiratory Rate 16 18 16 Blood Pressure 123/72 120/71 116/82 Pulse Oximetry 91 95 98 07/09/20 08:45 07/09/20 08:46 07/09/20 09:05 Temperature 97.4 F L 97.4 F L Pulse Rate 89 89 Respiratory Rate 18 18 18 Blood Pressure 148/80 H 148/80 H Pulse Oximetry 94 94 95 07/09/20 10:12 07/09/20 13:02 Temperature 97.8 F Pulse Rate 85 88 Respiratory Rate 16 16 Blood Pressure 130/69 Pulse Oximetry 97 94 Intake/Output Intake/Output: Intake & Output 07/06/20 07/07/20 07/08/20 07/09/20 23:59 23:59 23:59 23:59
--- NOTE | 2020-07-09 16:32 | PM.PROC ---
Procedure Note - Detailed Date of procedure: 07/09/20 Pre-op diagnosis: Left Hip Fracture Post-op diagnosis: same Procedure performed: ORIF left hip fracture with short Cephalomedullary nail. Implants: [place] Gamma nail, 180mm; 95mm lag screw. 37.5mm distal locking screw. Anesthesia: GETA Surgeon: Rusty Arredondo MD Estimated blood loss (mL): 200 Drains: No Complications: None Condition: stable Disposition: PACU Findings: Operative details. The patient was given a general anesthetic, then carefully placed in fracture table. Sterile prep and drape performed in the usual fashion. Sterile curtain was used. Gentle traction was utilized to reduce the fracture. Fluoroscopy was used to confirm anatomic reduction and a proper placement of the implants. A longitudinal incision was created at the tip of the trochanter. The deep fascia was incised. The cannulated awl was used to open the proximal femur. The guidewire was placed across the fracture. The reamer was used to open the canal. The gamma nail was placed across the fracture site. A separate incision was made for placement of the cannulated guide sleeve. The guide pin was placed in the center of the femoral head, slightly inferior. Appropriate measurement was taken. The pin was over reamed. The screw was placed with excellent purchase. The set screw was placed proximally and backed out a quater turn. The distal locking screw was placed through the jig. The 37.5 mm screw was used. The jig was removed. The wound was irrigated. The deep fascia was closed with #1 Vicryl suture followed by 2-0 Vicryl suture and taya. Sterile dressing was applied. The patient was transferred to the recovery room in stable condition. There were no complications.
--- NOTE | 2020-07-09 17:13 | SUR.PHASEI ---
1713 SBAR GAXED FLOOR NOTIIFED
--- NOTE | 2020-07-09 18:00 | PC.NURSE ---
Returned from OR via bed. Voiding per Talbot.
[2020-07-09] MEDS: KCL 20 MEQ/D5/0.45% SOD CHL 1,000 ML 80 ML IV CONT (18:44)
[2020-07-10] VITALS (7 sets, daily range): BP systolic 102–114; BP diastolic 48–68; PULSE 76–92; RESP 16–24; TEMP 36.6–36.9; O2SAT 94–99
[2020-07-10 05:22] LABS: Basophils Percent Auto 0.1 % (0.2-1.2); Hematocrit 25.6 % (37.0-47.0); Hemoglobin 8.1 g/dL (12.0-15.0); Immature Granulocyte Absolute 0.15 K/mm3 (0.00-0.031); Immature Granulocyte Percent A 0.8 % (0-0.5); Immature Platelet Fraction Pct 13.9 % (0.9-11.2); Lymphocytes Absolute Auto 0.43 K/mm3 (0.9-3.2); Lymphocytes Percent Auto 2.4 % (18.3-44.2); Mean Corpuscular HGB Conc 31.6 g/dl (32-36); Mean Corpuscular Hemoglobin 30.6 pg (26-34); Mean Corpuscular Volume 96.6 fl (80-100); Mean Platelet Volume 13.3 fl (7.4-10.4); Monocytes Absolute Auto 5.2 K/mm3 (0.1-0.6); Monocytes Percent Auto 29.3 % (2.6-8.5); Neutrophils Percent Auto 67.4 % (45.5-73.1); Platelet Count Result 137 k/mm3 (150-375); Red Blood Count 2.65 M/mm3 (4.2-5.4); Red Cell Distribution Width 15.2 % (11.5-14.5); White Blood Count 17.8 K/mm3 (4.5-10.0)
[2020-07-10 05:26] LABS: Anion Gap 6 mmol/L (8-16); Blood Urea Nitrogen 23 mg/dL (7-17); Calcium 8.8 mg/dL (8.4-10.2); Carbon Dioxide 25 mmol/L (22-30); Chloride 103 mmol/L (98-107); Estimated CRCL calculation 22 ml/min; Estimated Glomerular Filt Rate 39; Glucose 128 mg/dL (65-105); Potassium 3.9 mmol/L (3.4-5.0); Sodium 134 mmol/L (137-145)
[2020-07-10] MEDS: KCL 20 MEQ/D5/0.45% SOD CHL 1,000 ML 80 ML IV CONT (06:10)
[2020-07-10] MEDS: DOCUSATE SODIUM 100 MG CAPSULE PO ×2 (09:19→17:26)
[2020-07-10] MEDS: FERROUS SULFATE 324 MG TABLET PO ×2 (09:20→17:26)
[2020-07-10] MEDS: ENOXAPARIN 30 MG/0.3 ML SYRINGE SUB-Q (09:21)
[2020-07-10] MEDS: CHOLECALCIFEROL 1,000 UNITS TABLET 2000 UNITS PO (09:21)
--- NOTE | 2020-07-10 10:51 | PM.PNORT ---
Progress Note: A&P Assessment and Plan (1) Intertrochanteric fracture of left femur: Qualifiers: Encounter type: initial encounter Fracture alignment: displaced Fracture type: closed Qualified Code(s): S72.142A - Displaced intertrochanteric fracture of left femur, initial encounter for closed fracture Code(s): S72.142A - Displaced intertrochanteric fracture of left femur, initial encounter for closed fracture Status: Acute Assessment and Plan: POD #1 ORIF left hip fracture with short Cephalomedullary nail. Reviewed intraoperative imaging. Patient doing well postoperatively. No pain at this time. Patient will likely need discharge to SNF. Weight barring as tolerated. Ambulate with walker. Will follow up in office in 4-6 weeks. Subjective Subjective Date/Time Seen: 07/10/20 10:51 Patient is an 84-year-old female who was admitted 07/08/2020 for left hip fracture after falling from standing height. She has a history of diastolic heart failure, CKD, Hypertension, IBS, dementia, and Paroxysmal atrial fibrillation. Unable to obtain detailed history due to patient's mental status. Patient is from assisted living. She complains of left hip pain. No previous left hip pain. She is resting comfortably in bed and has no complaints at this time. No numbness, tingling, or other associated symptoms. Review of Systems Review of Systems: ROS unobtainable: Yes unobtainable due to mental status Exam Narrative: Exam Narrative: Lower extremity shortened and externally rotated. Const: General: no acute distress Eyes: General: appearance normal, both eyes and all related structures Resp: Effort & Inspection: normal respiratory effort GI: GI Palp: Yes Soft to palpation and No Guarding due to palpation present (GI) Urinary Catheter: Urinary Catheter: patent and draining and urine clear Skin: General skin exam: no rashes or lesions noted Neuro: Other: Wiggles toes well. Capillary refill brisk. Distal light touch sensation intact. Dorsalis pedis pulse palpable. Somnolent. Confused. Extrem: Other: No edema. Jhonny bandage intact. No redness, ecchymosis, drainage, or warmth from incision site. Dressing intact. No calf tenderness. Mild tenderness at incision site. Distal pulses palpable. Able to wiggle toes with good strength. Intact light touch sensation. Objective Data Vital Signs Vital Signs: Vital Signs - 24 hr 07/09/20 13:02 07/09/20 16:25 07/09/20 16:40 Temperature 97.8 F 97.5 F L Pulse Rate 88 78 78 Respiratory Rate 16 20 14 Blood Pressure 130/69 110/60 102/63 Pulse Oximetry 94 100 100 07/09/20 16:55 07/09/20 17:10 07/09/20 17:25 Temperature Pulse Rate 77 84 82 Respiratory Rate 14 16 16 Blood Pressure 111/70 127/79 119/70 Pulse Oximetry 100 99 100 07/09/20 18:00 07/09/20 18:15 07/09/20 18:45 Temperature 97.5 F L 97.3 F L 97.0 F L Pulse Rate 84 87 84 Respiratory Rate 18 16 16 Blood Pressure 123/74 114/76 122/70 Pulse Oximetry 94 98 100 07/09/20 19:45 07/10/20 02:00 07/10/20 05:00 Temperature 98.2 F 97.8 F 98.4 F Pulse Rate 84 92 76 Respiratory Rate 20 20 20 Blood Pressure 117/65 114/68 109/58 L Pulse Oximetry 100 98 94 07/10/20 09:57 07/10/20 10:00 Temperature 98.5 F Pulse Rate 82 87 Respiratory Rate 16 22 H Blood Pressure 110/52 L Pulse Oximetry 96 99 Intake/Output Intake/Output: Intake & Output 07/07/20 07/08/20 07/09/20 07/10/20 23:59 23:59 23:59 23:59 Intake Total 2250 2195 1670 Output Total 375 375 300 Balance 1875 1820 1370 Meds/Results Medications: Active Medications Generic Name Dose Route Start Last Admin Trade Name Freq PRN Reason Stop Dose Admin Acetaminophen 1,000 mg 07/09/20 16:32 Acetaminophen 500 Mg Tablet PO Q6H PRN pain 1-3 Docusate Sodium 100 mg 07/09/20 17:50 07/10/20 09:19 Docusate Sodium 100 Mg Capsule PO 100 mg BID IAIN Administration Enoxaparin Sodium 30 mg 07/10/20 09:00 07/10
[2020-07-10] MEDS: ERTAPENEM 1 GM/NS 50 ML 1 GM/50 ML BAG IVPB (11:12)
--- NOTE | 2020-07-10 11:54 | PM.IMPN ---
Progress Note: A&P Assessment and Plan (1) Intertrochanteric fracture of left femur: Qualifiers: Encounter type: initial encounter Fracture alignment: displaced Fracture type: closed Qualified Code(s): S72.142A - Displaced intertrochanteric fracture of left femur, initial encounter for closed fracture Code(s): S72.142A - Displaced intertrochanteric fracture of left femur, initial encounter for closed fracture Status: Acute Assessment and Plan: -----S/P ORIF POD 1. Patient is still requiring some oxygen but is currently being weaned down with no reports of recent hypoxia. She is on Lovenox for DVT prophylaxis and the [place] is going to stay until tomorrow morning. She is going to start with PT and OT. Continue with ortho recommendations with pain medications, anticoagulation, and PT/OT. (2) UTI due to extended-spectrum beta lactamase (ESBL) producing Escherichia coli: Code(s): N39.0 - Urinary tract infection, site not specified; B96.29 - Other Escherichia coli [E. coli] as the cause of diseases classified elsewhere; Z16.12 - Extended spectrum beta lactamase (ESBL) resistance Status: Acute Assessment and Plan: -------treating ESBL E.Coli Urine Culture from 07/05/2020 seen in the EMR under scanned documents. It is sensative to ertapenem, Macrobid, gentamicin, meropenem, Zosyn. New culture shows some resistance to Zosyn so she has been started on ertapenem. (3) Leukocytosis: Qualifiers: Leukocytosis type: unspecified Qualified Code(s): D72.829 - Elevated white blood cell count, unspecified Code(s): D72.829 - Elevated white blood cell count, unspecified Status: Acute Assessment and Plan: -------secondary to UTI and acute fall and trauma. (4) Chronic anemia: Code(s): D64.9 - Anemia, unspecified Status: Chronic Assessment and Plan: ------Likely anemia of chronic disease no signs of acute blood loss, will monitor H&H especially after surgery (5) Diastolic congestive heart failure: Qualifiers: Heart failure chronicity: chronic Qualified Code(s): I50.32 - Chronic diastolic (congestive) heart failure Code(s): I50.30 - Unspecified diastolic (congestive) heart failure Status: Chronic Assessment and Plan: -----Currently compensated, monitor fluid status (6) Hypercholesterolemia: Code(s): E78.00 - Pure hypercholesterolemia, unspecified Status: Chronic Assessment and Plan: -----will resume statin therapy after discharge (7) Acute metabolic encephalopathy: Code(s): G93.41 - Metabolic encephalopathy Status: Acute Assessment and Plan: -----EMR report from Dr. Martines on 07/07 report the patient was confused at that time and was thought to be due to UTI. The patient has had recent surgery and her UTI is still not completely treated which is likely both causing her confusion. I did not see any neurological deficits on exam I do not suspect stroke or bleed at this time. Will monitor closely and hopefully her cognition improves with treatment of UTI. Please note, the patient was confused before the fall Additional Plan m. Subjective Date/time seen: 07/10/20 11:54 Interval history: Pt is a 84-year-old female here for left hip fracture. Patient was seen today and confused. She is able to answer most questions and follow commands. She states she is not in any pain but does not know where she is. When asked, she specifically denies chest pain, shortness of breath, or nausea/vomiting. Exam Narrative: Exam Narrative: General: Well developed well nourished patient in NAD HEENT: normocephalic Neck: supple Neuro: Alert and oriented to her name but did not know where she was or why she was here. Unable to think of the year or president. Cranial nerves 2-12 intact. Equal strength the upper lower extremity but weak CV:RRR with a hars
--- NOTE | 2020-07-10 13:55 | WPDANESPN ---
Anes - Prog Note Post-Op Date/Time: 07/10/20 13:55 Cardiovascular status: normal Respiratory status: normal Airway patency: baseline Mental status: baseline Post-Op hydration status: normal Vital Signs: Last Vital Signs Temp 36.9 C 07/10/20 10:00 Pulse 87 07/10/20 10:00 Resp 22 H 07/10/20 10:00 BP 110/52 L 07/10/20 10:00 Pulse Ox 99 07/10/20 10:00 Pain Score (VAS): 0/10. Patient resting in bed at time of assessment, appears comfortable. No addition issues or concerns addressed by RN at time of assessment. No additional issues or concerns identified by patient at time of assessment, all questions answered. I/O: Intake & Output 07/09/20 07/10/20 07/10/20 23:59 07:59 15:59 Intake Total 1050 1550 170 Output Total 175 300 Balance 875 1250 170 Laboratory Tests 07/10/20 04:47 07/10/20 04:47 07/10/20 07/10/20 07/10/20 01:19 04:47 04:47 WBC 17.8 H RBC 2.65 L Hgb 8.1 L Hct 25.6 L MCV 96.6 MCH 30.6 MCHC 31.6 L RDW 15.2 H Plt Count 137 L MPV 13.3 H Immature Gran % (Auto) 0.8 H Neut % (Auto) 67.4 Lymph % (Auto) 2.4 L [place] % (Auto) 29.3 H Eos % (Auto) 0.0 Baso % (Auto) 0.1 L Lymph # (Auto) 0.43 L [place] # (Auto) 5.2 H Eos # (Auto) 0.0 Baso # (Auto) 0.0 Abs Immat Gran (auto) 0.15 H Absolute Neuts (auto) 12.0 H Absolute Nucleated RBC 0.0 Nucleated RBC % 0.0 % Immature Plt Fraction 13.9 H Sodium 134 L Potassium 3.9 Chloride 103 Carbon Dioxide 25 Anion Gap 6 L BUN 23 H Creatinine 1.30 H Estim Creat Clear Calc 22 Estimated GFR 39 L Glucose 128 H Calcium 8.8 SARS-CoV-2 RNA (RT-PCR) Pending Microbiology 07/08/20 19:02 Unspecified Urine Culture - Final Escherichia Coli (ESBL) 07/08/20 17:22 Blood Blood Culture - Preliminary 07/08/20 17:22 Blood Blood Culture - Preliminary Post-procedural complaints: none Patient Feedback: Patient satisfied with anesthetic care.
[2020-07-11] VITALS (27 sets, daily range): BP systolic 70–118; BP diastolic 40–72; PULSE 65–154; RESP 16–20; TEMP 36.6–37.4; O2SAT 93–98
[2020-07-11 01:49] LABS: SARS-CoV-2 RNA PCR Negative
[2020-07-11 06:04] LABS: Basophils Percent Auto 0.1 % (0.2-1.2); Hematocrit 25.3 % (37.0-47.0); Hemoglobin 7.9 g/dL (12.0-15.0); Immature Granulocyte Absolute 0.28 K/mm3 (0.00-0.031); Immature Granulocyte Percent A 1.4 % (0-0.5); Immature Platelet Fraction Pct 17.7 % (0.9-11.2); Lymphocytes Absolute Auto 0.48 K/mm3 (0.9-3.2); Lymphocytes Percent Auto 2.4 % (18.3-44.2); Mean Corpuscular HGB Conc 31.2 g/dl (32-36); Mean Corpuscular Hemoglobin 30.3 pg (26-34); Mean Corpuscular Volume 96.9 fl (80-100); Mean Platelet Volume 13.5 fl (7.4-10.4); Monocytes Absolute Auto 2.8 K/mm3 (0.1-0.6); Neutrophils Absolute Auto 16.3 K/mm3 (1.3-6.7); Neutrophils Percent Auto 82.1 % (45.5-73.1); Platelet Count Result 166 k/mm3 (150-375); Red Blood Count 2.61 M/mm3 (4.2-5.4); Red Cell Distribution Width 15.2 % (11.5-14.5); White Blood Count 19.8 K/mm3 (4.5-10.0)
[2020-07-11] MEDS: SODIUM CHLORIDE 0.9% IV 500 ML 999 ML IV CONT ×2 (06:25→08:12)
[2020-07-11 06:30] LABS: Anion Gap 10 mmol/L (8-16); Blood Urea Nitrogen 24 mg/dL (7-17); Calcium 8.9 mg/dL (8.4-10.2); Carbon Dioxide 22 mmol/L (22-30); Chloride 104 mmol/L (98-107); Estimated CRCL calculation 21 ml/min; Estimated Glomerular Filt Rate 36; Glucose 172 mg/dL (65-105); Potassium 4.3 mmol/L (3.4-5.0); Sodium 136 mmol/L (137-145)
--- NOTE | 2020-07-11 06:30 | PM.EVENT ---
Event Note Event Note Event Note: Called to see this 84 year old female who is here for a hip fracture and being treated for a UTI who today was found to have a low blood pressure. Nursing staff alerted me that they found her blood pressure to be 70s/40s this morning and rechecked it manually and found the same. On my arrival to bedside the patient appears withdrawn laying with her head to one side and will not turn her head and simply mumbles when I ask her a question. She will not follow any commands and nursing staff tells me that earlier in the shift she was answering questions and picking up her cup off of the table. STAT bedside accucheck came back at 167 mg/dl. We will administer 500 cc IV NS IV bolus, Check STAT lactic acid and check STAT CT brain to rule out acute CVA. I have discussed the patient's current clinical status with daytime Hospitalist.
[2020-07-11] MEDS: SODIUM CHLORIDE 0.9% IV 500 ML IV CONT (06:53)
[2020-07-11 07:07] LABS: Lactic Acid Reflex 2.2 mmol/L (0.7-2.1)
--- NOTE | 2020-07-11 07:34 | ECG_ITS ---
Measurements Intervals [place] Rate: 138 P: ID: 0 QRS: 53 QRSD: 73 T: 31 QT: 276 QTc: 419 Interpretive Statements ATRIAL FIBRILLATION WITH RAPID VENTRICULAR RESPONSE LOW QRS VOLTAGE IN LIMB LEADS ABNORMAL ECG Electronically Signed On 07-11-2020 9:05:24 [employer] HOUSEKEEPER by Daryl Webster D.O.
[2020-07-11] MEDS: DIGOXIN INJ 250 MCG/ML 2 ML AMP (*BKC) 125 MCG IV PUSH (08:18)
[2020-07-11] MEDS: DOCUSATE SODIUM 100 MG CAPSULE PO ×2 (08:23→16:23)
[2020-07-11] MEDS: CHOLECALCIFEROL 1,000 UNITS TABLET 2000 UNITS PO (08:23)
[2020-07-11] MEDS: ENOXAPARIN 30 MG/0.3 ML SYRINGE SUB-Q (08:23)
[2020-07-11] MEDS: FERROUS SULFATE 324 MG TABLET PO ×2 (08:24→16:23)
[2020-07-11] MEDS: ERTAPENEM 1 GM/NS 50 ML 1 GM/50 ML BAG IVPB (09:03)
--- NOTE | 2020-07-11 09:27 | PCPTNOTE ---
The patient treatment was not able to be completed at this time due to patient going to CT. Will plan to continue treatment per plan of care.
--- NOTE | 2020-07-11 09:34 | PM.CNCAR ---
Assessment and Plan Assessment and plan (1) Atrial fibrillation with RVR: Code(s): I48.91 - Unspecified atrial fibrillation Status: Acute Assessment and Plan: 84-year-old female with no known prior cardiac history, admitted to the hospital with a mechanical fall, found to have comminuted intertrochanteric left hip fracture status post ORIF left hip fracture with short Cephalomedullary nail on 07/09/2020. Patient also has UTI. Postoperatively, patient went into atrial fibrillation with RVR with hypotension. Patient fluid resuscitated with normal saline. Heart rate improved after 1 dose of IV digoxin. - Patient's heart rates have improved and currently her heart ventricular rate is in 90s to 110s. Continue to monitor on telemetry. If patient's blood pressure allows, then may start on low-dose metoprolol tartrate 12.5 mg p.o. b.i.d. with holding parameteres. - patient currently on DVT prophylaxis with low molecular weight heparin. Therapeutic anticoagulation to be considered when hemoglobin improves/stabilizes. candidacy for chronic anticoagulation to be determined. It is uncertain if patient has gait instability and risk for fall. PT OT evaluation. - Check echocardiogram with Doppler to rule out any major structural heart disease. - postop management as per Orthopedic surgery - appropriate antibiotics for UTI History of Present Illness History of Present Illness Consult date/time: 07/11/20 09:34 Date of consult-07/11/2020 Reason for consult: Atrial fibrillation with rapid ventricular response Requesting physician:MARILYNN Montague Chief complaint: Left hip and knee pain HPI: 84-year-old female with no known prior cardiac history. Patient was admitted to [facility] on 07/07/2020 with complaints of left hip and knee pain after mechanical fall. Hip x-ray showed Comminuted intertrochanteric left hip fracture with varus deformity; diffuse osteopenia; status post ORIF right intertrochanteric hip fracture. On 07/09/2020, patient underwent ORIF left hip fracture with short Cephalomedullary nail. Patient's EKG on admission which I personally evaluated showed sinus rhythm, heart rate 93 beats per minute, nonspecific ST-T abnormality. Postoperatively, patient went into atrial fibrillation associated with hyotension. EKG from today which I personally evaluated showed atrial fibrillation with RVR, heart rate 130 beats per minute. Cardiology was therefore consulted for further management. I spoke with the hospitalist team, and patient was given fluid resuscitation and received 1 dose of IV digoxin. Currently, on telemetry, her heart rates have improved in 90s to 100s, and her blood pressure has improved from 90s to 100s systolic. At the time of evaluation, patient appeared somnolent. She denied any ongoing symptoms of chest pain or shortness of breath at rest. CT scan of the head from today showed no acute intracranial abnormality. Patient's UA is suggestive of UTI. She is anemic with current hemoglobin of 7.9 grams/deciliters. Reason For Visit: Left Hip Fracture Review of Systems Review of Systems: Narrative: Review of systems is difficult to obtain due to patient being in delirium. Review of systems as per HPI. Information is gathered from the patient, from the staff and review of the chart. [facility] Past Medical History Medical History Anemia Appendicitis Bilateral cataracts Chronic bilateral thoracic back pain Chronic fatigue Chronic kidney disease, stage 3 (moderate) Confusion Dementia Diastolic congestive heart failure Eczema Gallbladder disease GI bleed Glaucoma Hx of adenomatous colonic polyps Hypercholesterolemia Hyperlipidemia Hypertension IBS (irritable bowel syndrome) Iron deficiency anemia Mild anemia OAB (overactive bladder) Orthostatic hypotension Orthostatic hypotension Osteoarthritis Paroxysmal atrial fibrillation Paroxysmal atri
[2020-07-11 09:49] LABS: Glucose Point of Care 167 (65-105)
[2020-07-11 09:50] LABS: Reflex Lactic Acid Yes or No Add Lactic
[2020-07-11 10:24] LABS: Lactic Acid 1.8 mmol/L (0.7-2.1)
--- NOTE | 2020-07-11 10:39 | PM.IMPN ---
Progress Note: A&P Assessment and Plan (1) Sepsis: Code(s): A41.9 - Sepsis, unspecified organism Status: Acute Assessment and Plan: Pt appeared septic today with HR of 138, hypotension and leukocytosis of 19.8. Likely d/t UTI. Ertapenem starte 07/10/20. Repeat blood cultures obtained. She responded well to IV fluids and Dig. Cardiology onboard. Spoke with daughter and son about plan of care, switch to DNR but treat active infection. (2) Atrial fibrillation with RVR: Code(s): I48.91 - Unspecified atrial fibrillation Status: Acute Assessment and Plan: -----2/2 to infection. HR controlled now. If bp improves, metoprolol may be started. Risk of anticoagulation outpt high. (3) Intertrochanteric fracture of left femur: Qualifiers: Encounter type: initial encounter Fracture alignment: displaced Fracture type: closed Qualified Code(s): S72.142A - Displaced intertrochanteric fracture of left femur, initial encounter for closed fracture Code(s): S72.142A - Displaced intertrochanteric fracture of left femur, initial encounter for closed fracture Status: Acute Assessment and Plan: -----S/P ORIF POD 2. She is on Lovenox for DVT prophylaxis. Continue PT/OT. Continue with ortho recommendations with pain medications, anticoagulation, and PT/OT. (4) UTI due to extended-spectrum beta lactamase (ESBL) producing Escherichia coli: Code(s): N39.0 - Urinary tract infection, site not specified; B96.29 - Other Escherichia coli [E. coli] as the cause of diseases classified elsewhere; Z16.12 - Extended spectrum beta lactamase (ESBL) resistance Status: Acute Assessment and Plan: -------treating ESBL E.Coli Urine Culture from 07/05/2020 seen in the EMR under scanned documents. It is sensative to Zosyn. New culture shows some resistance to Zosyn so she has been started on ertapenem. (5) Leukocytosis: Qualifiers: Leukocytosis type: unspecified Qualified Code(s): D72.829 - Elevated white blood cell count, unspecified Code(s): D72.829 - Elevated white blood cell count, unspecified Status: Acute Assessment and Plan: -------secondary to UTI and acute fall and trauma. (6) Chronic anemia: Code(s): D64.9 - Anemia, unspecified Status: Chronic Assessment and Plan: ------Likely anemia of chronic disease no signs of acute blood loss, will monitor H&H especially after surgery (7) Diastolic congestive heart failure: Qualifiers: Heart failure chronicity: chronic Qualified Code(s): I50.32 - Chronic diastolic (congestive) heart failure Code(s): I50.30 - Unspecified diastolic (congestive) heart failure Status: Chronic Assessment and Plan: -----Currently compensated, monitor fluid status (8) Hypercholesterolemia: Code(s): E78.00 - Pure hypercholesterolemia, unspecified Status: Chronic Assessment and Plan: -----will resume statin therapy after discharge (9) Acute metabolic encephalopathy: Code(s): G93.41 - Metabolic encephalopathy Status: Acute Assessment and Plan: -----Suspected it is due to UTI/sepsis. Blood cultures have been obtained. EMR report from Dr. Martines on 07/07 report the patient was confused at that time and was thought to be due to UTI. The patient has had recent surgery and her UTI is still not completely treated which is likely both causing her confusion. I did not see any neurological deficits on exam I do not suspect stroke or bleed at this time. CT head negative. Will monitor closely and hopefully her cognition improves with treatment of UTI. The patient was confused before the fall Additional Plan m. Subjective Date/time seen: 07/11/20 10:39 Interval history: Pt is a 84-year-old female here for left hip fracture. Patient was seen today and confused. She is able to answer most questions an
[2020-07-11] MEDS: SODIUM CHLORIDE 0.9% IV 500 ML 100 ML IV CONT (10:57)
[2020-07-11] MEDS: SODIUM CHLORIDE 0.9% IV 1,000 ML 100 ML IV CONT (16:20)
[2020-07-12] VITALS (17 sets, daily range): BP systolic 118–152; BP diastolic 54–82; PULSE 66–76; RESP 14–18; TEMP 36.1–36.7; O2SAT 95–100; BMI 10.0
--- NOTE | 2020-07-12 | ECHOL_ITS ---
Patient Info Name: Kathrin Ovalle Age: 84 years : 1935 Gender: Female Ht: 61 in Wt: 107 lbs BSA: 1.45 m2 HR: 73 bpm BP: 126 / 54 mmHg Heart Rhythm: Sinus Rhythm Technical Quality: Good Exam Date: 07/12/2020 2:59 PM Exam Location: [facility] Pulmonary Patient Status: Inpatient Admit Date: 07/07/2020 Staff Ordering Physician: Mason Bauer MD Mule Tender: Jeramie Morgan RDCS Attending Provider: Alda Montague PA-C Exam Type: CA echo limited Study Info Indications I48.0 - Paroxysmal atrial fibrillation Limited two-dimensional transthoracic echocardiogram is performed. History/Risk Factors Sepsis; atrial fibrillation; hip fracture. Summary 1. Limited study; the patient declined further imaging when the study was half way complete and no apical or subcostal images were obtained. 2. Normal left ventricular size and thickness. Overall good left ventricular systolic function, estimated ejection fraction 60-65%. Probable inferolateral basal hypokinesis. Diastolic function indeterminate. 3. Left atrial chamber dimension is mildly enlarged. 4. There is mild aortic valve sclerosis with trace aortic insufficiency. 5. There is mild tricuspid valve regurgitation. 6. Moderate pulmonary hypertension, estimated pulmonary arterial systolic pressure is 62 mmHg. 7. Normal sinus rhythm. Left Ventricle Left ventricular chamber dimension is normal. Left ventricular systolic function is normal, estimated at 60-65%. There is no increased left ventricular wall thickness. Left ventricular septal wall motion is normal. The left ventricular diastolic function is indeterminate. Right Ventricle Right ventricular chamber dimension is normal. Right ventricular systolic function is normal. Left Atria Left atrial chamber dimension is mildly enlarged. Right Atria Right atrial chamber dimension is normal. Aortic Valve The aortic valve is trileaflet. There is mild aortic valve sclerosis with trace aortic insufficiency. There is no aortic valve stenosis. There is trace aortic valve regurgitation. Pulmonic Valve The pulmonic valve is normal. There is no pulmonic valve stenosis. There is no pulmonic regurgitation. Mitral Valve The mitral valve has normal leaflets. There is no mitral valve stenosis. There is no mitral valve regurgitation. Tricuspid Valve The tricuspid valve leaflets are normal. There is no significant tricuspid valve stenosis. There is mild tricuspid valve regurgitation. Moderate pulmonary hypertension, estimated pulmonary arterial systolic pressure is 62 mmHg. Pericardium/Pleural The pericardium appears normal. There is no pericardial effusion. Inferior Vena Cava Normal inferior vena cava with >50% collapse upon inspiration consistent with Empty right atrial pressure, 10 mmHg. Aorta The aortic root size at the sinus of Valsalva is normal. The prox ascending aorta size is normal. There is mild aortic atherosclerosis. Left Ventricular Outflow Tract Name Value Normal LVOT 2D LVOT Diameter 1.9 cm Tricuspid Valve Name Value Normal --------
[2020-07-12] MEDS: SODIUM CHLORIDE 0.9% IV 1,000 ML 100 ML IV CONT (03:00)
[2020-07-12 06:11] LABS: Eosinophils Percent Auto 0.2 % (0-4.4); Immature Granulocyte Percent A 0.9 % (0-0.5); Immature Platelet Fraction Pct 18.1 % (0.9-11.2); Lymphocytes Absolute Auto 0.82 K/mm3 (0.9-3.2); Lymphocytes Percent Auto 7.2 % (18.3-44.2); Mean Corpuscular Hemoglobin 29.8 pg (26-34); Mean Corpuscular Volume 99.5 fl (80-100); Mean Platelet Volume 14.2 fl (7.4-10.4); Monocytes Absolute Auto 2.9 K/mm3 (0.1-0.6); Neutrophils Absolute Auto 7.6 K/mm3 (1.3-6.7); Neutrophils Percent Auto 66.7 % (45.5-73.1); Platelet Count Result 129 k/mm3 (150-375); Red Blood Count 2.08 M/mm3 (4.2-5.4); Red Cell Distribution Width 15.3 % (11.5-14.5); White Blood Count 11.4 K/mm3 (4.5-10.0)
[2020-07-12 06:16] LABS: Hematocrit 20.7 % (37.0-47.0); Hemoglobin 6.2 g/dL (12.0-15.0)
[2020-07-12 06:21] LABS: Alanine Aminotransferase 76 U/L (4-35); Albumin Level 2.3 g/dL (3.5-5.1); Alkaline Phosphatase 99 U/L (38-126); Anion Gap 3 mmol/L (8-16); Aspartate Amino Transferase 77 U/L (14-36); Bilirubin,Total 0.5 mg/dL (0.2-1.3); Blood Urea Nitrogen 26 mg/dL (7-17); Calcium 8.3 mg/dL (8.4-10.2); Carbon Dioxide 23 mmol/L (22-30); Chloride 112 mmol/L (98-107); Estimated CRCL calculation 24 ml/min; Estimated Glomerular Filt Rate 43; Glucose 96 mg/dL (65-105); Magnesium 1.9 mg/dL (1.6-2.3); Sodium 138 mmol/L (137-145)
[2020-07-12 06:35] LABS: CRP 19.7 mg/dL (<1.0)
--- NOTE | 2020-07-12 06:43 | PC.NURSE ---
Called son regarding need for transfusion, and he is agreeable.
[2020-07-12] MEDS: CHOLECALCIFEROL 1,000 UNITS TABLET 2000 UNITS PO (08:47)
[2020-07-12] MEDS: FERROUS SULFATE 324 MG TABLET PO ×2 (08:47→17:17)
[2020-07-12] MEDS: ENOXAPARIN 30 MG/0.3 ML SYRINGE SUB-Q (08:47)
[2020-07-12] MEDS: DOCUSATE SODIUM 100 MG CAPSULE PO ×2 (08:47→17:17)
[2020-07-12] MEDS: SODIUM CHLORIDE 0.9% IV 250 ML 30 ML IV CONT (08:47)
[2020-07-12 10:08] LABS: Platelet Estimate Adequate (Adequate)
--- NOTE | 2020-07-12 11:26 | PCNFU ---
Nutrition Follow-Up Complete: Inadequate Oral Intake as related to left hip fx as evidenced by weight loss reported and poor po intake. Goal: Meet estimated nutritional needs. Limited progress towards goal. We will continue current goal. Pt current nutrition is Regular,Level 7. Nutrition recommendation: Ensure compact BID Last recorded weight is 48.6 kg, no new weight. Bowel Motility:+BM reported 07/11 Labs Reviewed:Cr 1.2,BUN 26,GFR 43,Hgb 6.2 Meds Noted:NS 1000 ml @ 100 ml/hr, Colace,Vit D, Lovenox Additional Notes: Nutrition follow up today. Patient receiving blood. Surgery 07/09 for left hip fx. Advanced to a regular diet with oral intake 5-25% of meals. Ensure Compact BID as been added providing an additional 220 kcals and 9 gms protein. PO intake is encouraged. Monitoring: Will monitor every 5 days.
--- NOTE | 2020-07-12 11:41 | PM.IMPN ---
Progress Note: A&P Assessment and Plan (1) Sepsis: Code(s): A41.9 - Sepsis, unspecified organism Status: Acute Assessment and Plan: ------ patient appeared septic yesterday with hypotension, leukocytosis, and tachycardia. Today all of those have improved. likely secondary to UTI, postop infection seems less likely as incision site is clean and dry. Blood cultures are still pending. Spoke with daughter and son about plan of care. (2) Atrial fibrillation with RVR: Code(s): I48.91 - Unspecified atrial fibrillation Status: Acute Assessment and Plan: ----- Resolved.2/2 to infection. HR controlled now. Patient had crackles today after a lot of fluids yesterday and blood today. Will give 1 dose of Lasix now. Repeat chest x-ray in the morning to assess fluid status. Risk of anticoagulation outpt high. (3) Intertrochanteric fracture of left femur: Qualifiers: Encounter type: initial encounter Fracture alignment: displaced Fracture type: closed Qualified Code(s): S72.142A - Displaced intertrochanteric fracture of left femur, initial encounter for closed fracture Code(s): S72.142A - Displaced intertrochanteric fracture of left femur, initial encounter for closed fracture Status: Acute Assessment and Plan: -----S/P ORIF POD 3. She is on Lovenox for DVT prophylaxis but will speak to ortho about this since now anemic. Continue PT/OT. No bleeding at the surgical site. Continue with ortho recommendations with pain medications, anticoagulation, and PT/OT. (4) UTI due to extended-spectrum beta lactamase (ESBL) producing Escherichia coli: Code(s): N39.0 - Urinary tract infection, site not specified; B96.29 - Other Escherichia coli [E. coli] as the cause of diseases classified elsewhere; Z16.12 - Extended spectrum beta lactamase (ESBL) resistance Status: Acute Assessment and Plan: -------treating ESBL E.Coli Urine Culture from 07/05/2020 seen in the EMR under scanned documents. It is sensitive to Zosyn. New culture shows some resistance to Zosyn so she has been started on ertapenem and she is doing much better with that. (5) Leukocytosis: Qualifiers: Leukocytosis type: unspecified Qualified Code(s): D72.829 - Elevated white blood cell count, unspecified Code(s): D72.829 - Elevated white blood cell count, unspecified Status: Acute Assessment and Plan: -------secondary to UTI and acute fall and trauma. (6) Chronic anemia: Code(s): D64.9 - Anemia, unspecified Status: Chronic Assessment and Plan: ------ Worsened today. No bleeding at the surgical site and abdomen does not appear distended. No signs of bleeding. Likely anemia of chronic disease worsened with IV fluids yesterday and surgury. Spoke with ortho, will monitor H&H and continue lovenox at this time since she is high risk of clotting. (7) Diastolic congestive heart failure: Qualifiers: Heart failure chronicity: chronic Qualified Code(s): I50.32 - Chronic diastolic (congestive) heart failure Code(s): I50.30 - Unspecified diastolic (congestive) heart failure Status: Chronic Assessment and Plan: -----Crackles noted today after IVF and blood today. Will give one dose of lasix IV and check CXR tomorrow AM. Echo pending. (8) Hypercholesterolemia: Code(s): E78.00 - Pure hypercholesterolemia, unspecified Status: Chronic Assessment and Plan: -----will resume statin therapy after discharge (9) Acute metabolic encephalopathy: Code(s): G93.41 - Metabolic encephalopathy Status: Acute Assessment and Plan: -----Improving. Suspected it is due to UTI/sepsis. Blood cultures have been obtained and are pending. EMR report from Dr. Martines on 07/07 report the patient was confused at that time and was thought to be due to UTI. The patient has had rec
[2020-07-12] MEDS: ERTAPENEM 1 GM/NS 50 ML 1 GM/50 ML BAG IVPB (12:23)
[2020-07-12] MEDS: FUROSEMIDE INJ 40 MG/4 ML VIAL 20 MG IV PUSH (12:24)
[2020-07-12 13:29] LABS: Hematocrit 28.6 % (37.0-47.0); Hemoglobin 9.1 g/dL (12.0-15.0)
[2020-07-12 13:39] LABS: Lactate Dehydrogenase 867 U/L (313-618)
[2020-07-12 14:11] LABS: Iron 18 ug/dL (37-170)
[2020-07-12 14:21] LABS: Percent Iron Saturation 9 % (20-50)
[2020-07-12 14:46] LABS: Folic Acid 4.7 ng/mL (2.76->20)
--- NOTE | 2020-07-12 15:51 | PCCARD ---
Patient refused the rest of the exam.
--- NOTE | 2020-07-12 15:55 | PM.PNCARD ---
Progress Note: A&P Assessment and Plan (1) Atrial fibrillation with RVR: Code(s): I48.91 - Unspecified atrial fibrillation Status: Acute Assessment and Plan: 84-year-old female with no known prior cardiac history, admitted to the hospital with a mechanical fall, found to have comminuted intertrochanteric left hip fracture status post ORIF left hip fracture with short Cephalomedullary nail on 07/09/2020. Also has UTI. Postoperatively, she went into atrial fibrillation with RVR with hypotension. Fluid resuscitated with normal saline. Heart rate improved after 1 dose of IV digoxin. converted to normal sinus 07/11/2020 at 12:27 p.m. 1 short burst at approximately 7:30 p.m. on 07/11/2020. No atrial fibrillation since then. Heart rates 60s to 70s. Will observe for any recurrence of atrial fibrillation before initiating any beta-yu. Currently on DVT prophylaxis with low molecular weight heparin. Therapeutic anticoagulation to be considered when hemoglobin improves/stabilizes. Ccandidacy for chronic anticoagulation to be determined. It is uncertain if she has gait instability and risk for fall. PT OT evaluation. Echocardiogram with Doppler to rule out any major structural heart disease was ordered. She refused to continue cooperation with study. Postop management as per Orthopedic surgery Appropriate antibiotics for UTI Additional Plan Plan discussed with Dr. tSaples [id number] 07/12/2020 Subjective Date/time seen: 07/12/20 15:55 Interval history: Follow-up for: left hip fracture with postoperative atrial fibrillation. Converted to normal sinus rhythm 07/11/2020 at 12:27 p.m.. Date of service: 07/12/2020 Subjective: Pain only with movement. Not doing much moving around. Denied shortness of breath or lightheadedness. Review of Systems Constitutional: Constitutional: Reports weakness Eyes: Eyes: Denies blind spots and Denies blurry vision ENT: Denies dizziness and Reports hearing loss Cardiovascular: Cardiovascular: Denies chest pain and Denies pedal edema Respiratory: Respiratory: Denies dyspnea on exertion Gastrointestinal: Gastrointestinal: Denies nausea and Denies vomiting Genitourinary: Genitourinary: Denies hematuria Musculoskeletal: Musculoskeletal: Reports arthralgias ( Postop hip) Integumentary/Breasts: Skin/Breast: Denies erythema and Denies rash Neurologic: Reports weakness Psychiatric: Psychiatric: Denies anxiety and Denies behavioral changes Endocrine: Endocrine: Denies flushing and Denies palpitations Hematologic/Lymphatic: Hematologic/Lymphatic: Reports easy bruising Allergic/Immunologic: Allergic/Immunologic: Denies throat swelling, Denies tongue swelling and Denies wheezing Exam Narrative: Exam Narrative: PHYSICAL EXAMINATION: GENERAL: Elderly female sleeping in bed. Arouses easily. Answer simple questions. EYES: Extraocular movements intact, pallor EARS: External ears appear normal. Hard of hearing NOSE: Normal and patent, no discharge MOUTH: Mucous membranes moist, tongue normal NECK: Supple, no JVD CHEST: decreased breath sounds, decreased effort HEART: Normal rate, regular rhythm without murmur ABDOMEN: Soft, nontender. Bowel sounds x4 quadrants. NEUROLOGICAL: somnolent . Answers simple questions but is not fully oriented. MUSCULOSKELETAL: left hip surgical wound EXTREMITIES: No pedal edema, no clubbing, no cyanosis SKIN: ecchymosis bilateral arms PSYCHIATRIC: calm, cooperative Objective Data Vital Signs Vital Signs: Vital Signs - 24 hr 07/11/20 16:00 07/11/20 17:20 07/11/20 20:00 Temperature 37.4 C Pulse Rate 76 81 77 Respiratory Rate 18 16 Blood Pressure 118/62 102/52 L Pulse Oximetry 95 95 07/11/20 20:12 07/12/20 00:08 07/12/20 01:25 Temperature 36.6 C 36.7 C Pulse Rate 77 71 70 Respiratory Rate 16 14 Blood Pressure 108/55 L 118/58 L Pulse Oximetry 95 95 07/12/20 04:00 07/12/20 05
--- NOTE | 2020-07-12 16:38 | PM.PNORT ---
Progress Note: A&P Assessment and Plan (1) Intertrochanteric fracture of left femur: Qualifiers: Encounter type: initial encounter Fracture alignment: displaced Fracture type: closed Qualified Code(s): S72.142A - Displaced intertrochanteric fracture of left femur, initial encounter for closed fracture Code(s): S72.142A - Displaced intertrochanteric fracture of left femur, initial encounter for closed fracture Status: Acute Assessment and Plan: One unit transfused. Acute blood loss anemia. No signs of hematoma. Mild drainage. Will observe. May continue current DVT prophylaxis. Subjective Subjective Date/Time Seen: 07/12/20 16:38 Post Op day: 3 Interval history: Minimally responsive. Exam Narrative: Exam Narrative: Resting comfortably. Wound is healing well. Mild drainage. No hematoma. Thigh soft. Extrem: General: capillary refill normal, no calf tenderness bilaterally and no pedal edema Objective Data Vital Signs Vital Signs: Vital Signs - 24 hr 07/11/20 17:20 07/11/20 20:00 07/11/20 20:12 Temperature 37.4 C 36.6 C Pulse Rate 81 77 77 Respiratory Rate 18 16 16 Blood Pressure 102/52 L 108/55 L Pulse Oximetry 95 95 95 07/12/20 00:08 07/12/20 01:25 07/12/20 04:00 Temperature 36.7 C Pulse Rate 71 70 67 Respiratory Rate 14 Blood Pressure 118/58 L Pulse Oximetry 95 07/12/20 05:34 07/12/20 08:00 07/12/20 08:55 Temperature 36.5 C 36.2 C L Pulse Rate 67 68 76 Respiratory Rate 16 16 Blood Pressure 126/54 L 131/63 Pulse Oximetry 99 100 07/12/20 09:10 07/12/20 10:10 07/12/20 11:10 Temperature 36.1 C L 36.2 C L 36.3 C L Pulse Rate 73 69 71 Respiratory Rate 17 16 18 Blood Pressure 124/61 140/66 136/74 Pulse Oximetry 100 100 98 07/12/20 12:00 07/12/20 12:10 07/12/20 12:19 Temperature 36.3 C L 36.3 C L Pulse Rate 66 70 70 Respiratory Rate 16 16 Blood Pressure 152/82 H 152/82 H Pulse Oximetry 98 98 07/12/20 14:00 07/12/20 16:00 Temperature 36.3 C L Pulse Rate 74 73 Respiratory Rate 16 Blood Pressure 151/70 H Pulse Oximetry 97 Intake/Output Intake/Output: Intake & Output 07/09/20 07/10/20 07/11/20 07/12/20 23:59 23:59 23:59 23:59 Intake Total 2195 3110 2440 2515 Output Total 375 600 400 Balance 1820 2510 2040 2515 Meds/Results Medications: Active Medications Generic Name Dose Route Start Last Admin Trade Name Freq PRN Reason Stop Dose Admin Acetaminophen 1,000 mg 07/09/20 16:32 Acetaminophen 500 Mg Tablet PO Q6H PRN pain 1-3 Docusate Sodium 100 mg 07/09/20 17:50 07/12/20 08:47 Docusate Sodium 100 Mg Capsule PO 100 mg BID IAIN Administration Enoxaparin Sodium 30 mg 07/10/20 09:00 07/12/20 08:47 Enoxaparin 30 Mg/0.3 Ml Syringe SUB-Q 30 mg DAILY IAIN Administration Ferrous Sulfate 324 mg 07/09/20 09:00 07/12/20 08:47 Ferrous Sulfate 324 Mg Tablet PO 324 mg BID IAIN Administration Ertapenem 1 gm in 50 mls @ 100 mls/hr 07/10/20 09:00 07/12/20 12:53 Invanz 1 Gm/Ns 50 Ml IVPB Infused Q24H IAIN Infusion Lidocaine 2 patch 07/09/20 09:00 07/12/20 08:48 Lidocaine 5% Patch TRANSDERM Not Given DAILY IAIN Magnesium Hydroxide 30 ml 07/09/20 17:50 Magnesium Hydroxide Susp 30 Ml Udc PO BID PRN Constipation Naloxone HCl 0.1 mg 07/09/20 17:50 Naloxone Hcl 0.4 Mg/Ml Vial IV PUSH Q2M PRN Opiate Reversal Ondansetron HCl 4 mg 07/08/20 19:10 Ondansetron Inj 4 Mg/2 Ml Vial IV PUSH Q6H PRN Nausea And Vomiting Oxycodone HCl 2.5 mg 07/09/20 17:50 Oxycodone Hcl (*Crx) 2.5 Mg Tab Ir PO Q4H PRN Pain Rated 4-6 Oxycodone HCl 5 mg 07/09/20 17:50 Oxycodone Hcl (*Crx) 5 Mg Tab Ir PO Q4H PRN Pain Rated 7-10 Vitamin D 2,000 units 07/08/20 09:00 07/12/20 08:47 Cholecalciferol 1,000 Units Tablet PO 2,000 units DAILY IAIN Administration Radiology Results: ITS Impressions Hip/Pelvis
[2020-07-12 17:43] LABS: Hematocrit 29.1 % (37.0-47.0); Hemoglobin 9.4 g/dL (12.0-15.0)
[2020-07-12 21:22] LABS: SARS-CoV-2 RNA PCR Negative
[2020-07-13] VITALS (18 sets, daily range): BP systolic 83–148; BP diastolic 55–73; PULSE 62–136; RESP 14–16; TEMP 36.3–36.7; O2SAT 96–99; BMI 11.0
[2020-07-13 01:00] LABS: Hematocrit 28.4 % (37.0-47.0); Hemoglobin 9.2 g/dL (12.0-15.0)
[2020-07-13 05:21] LABS: Basophils Percent Auto 0.1 % (0.2-1.2); Eosinophils Absolute Auto 0.1 K/mm3 (0-0.3); Eosinophils Percent Auto 0.7 % (0-4.4); Hematocrit 29.1 % (37.0-47.0); Hemoglobin 9.4 g/dL (12.0-15.0); Immature Granulocyte Absolute 0.08 K/mm3 (0.00-0.031); Immature Granulocyte Percent A 0.9 % (0-0.5); Lymphocytes Absolute Auto 0.77 K/mm3 (0.9-3.2); Lymphocytes Percent Auto 8.4 % (18.3-44.2); Mean Corpuscular HGB Conc 32.3 g/dl (32-36); Mean Corpuscular Hemoglobin 30.7 pg (26-34); Mean Corpuscular Volume 95.1 fl (80-100); Mean Platelet Volume 12.4 fl (7.4-10.4); Monocytes Absolute Auto 1.9 K/mm3 (0.1-0.6); Neutrophils Absolute Auto 6.3 K/mm3 (1.3-6.7); Neutrophils Percent Auto 68.9 % (45.5-73.1); Platelet Count Result 174 k/mm3 (150-375); Red Blood Count 3.06 M/mm3 (4.2-5.4); Red Cell Distribution Width 14.6 % (11.5-14.5); White Blood Count 9.1 K/mm3 (4.5-10.0)
[2020-07-13 05:44] LABS: Anion Gap 6 mmol/L (8-16); Blood Urea Nitrogen 23 mg/dL (7-17); Calcium 8.6 mg/dL (8.4-10.2); Carbon Dioxide 24 mmol/L (22-30); Chloride 108 mmol/L (98-107); Estimated CRCL calculation 26 ml/min; Estimated Glomerular Filt Rate 47; Glucose 83 mg/dL (65-105); Magnesium 1.8 mg/dL (1.6-2.3); Potassium 3.3 mmol/L (3.4-5.0); Sodium 138 mmol/L (137-145)
--- NOTE | 2020-07-13 08:05 | PC.NURSE ---
heart rate became elevated following PT, returned to bed with santa steady
[2020-07-13] MEDS: ACETAMINOPHEN 500 MG TABLET 1000 MG PO (08:26)
[2020-07-13] MEDS: DOCUSATE SODIUM 100 MG CAPSULE PO ×2 (08:26→17:44)
[2020-07-13] MEDS: ENOXAPARIN 30 MG/0.3 ML SYRINGE SUB-Q (08:26)
[2020-07-13] MEDS: ERTAPENEM 1 GM/NS 50 ML 1 GM/50 ML BAG IVPB (08:27)
[2020-07-13] MEDS: FERROUS SULFATE 324 MG TABLET PO ×2 (08:27→17:44)
[2020-07-13] MEDS: CHOLECALCIFEROL 1,000 UNITS TABLET 2000 UNITS PO (08:27)
[2020-07-13] MEDS: LIDOCAINE 5% PATCH 2 PATCH TRANSDERM (08:27)
--- NOTE | 2020-07-13 08:49 | PM.PNCARD ---
Progress Note: A&P Assessment and Plan (1) Atrial fibrillation with RVR: Code(s): I48.91 - Unspecified atrial fibrillation Status: Acute Assessment and Plan: Postoperatively, she went into atrial fibrillation with RVR with hypotension. Fluid resuscitated with normal saline. Heart rate improved after 1 dose of IV digoxin. converted to normal sinus 07/11/2020 at 12:27 p.m. 1 short burst at approximately 7:30 p.m. on 07/11/2020. Recurrent AFib RVR 07/13/2020. Currently on DVT prophylaxis with low molecular weight heparin. Therapeutic anticoagulation to be considered when hemoglobin improves/stabilizes. Ccandidacy for chronic anticoagulation to be determined. It is uncertain if she has gait instability and risk for fall. PT OT evaluation. Echocardiogram with Doppler to rule out any major structural heart disease was ordered. She refused to continue cooperation with study. Will start her on a beta-yu at this point. Subjective Date/time seen: 07/13/20 08:49 Interval history: Follow-up for: left hip fracture with postoperative atrial fibrillation. 84-year-old female with no known prior cardiac history, admitted to the hospital with a mechanical fall, found to have comminuted intertrochanteric left hip fracture status post ORIF left hip fracture with short Cephalomedullary nail on 07/09/2020. Also has UTI. Converted to normal sinus rhythm, short burst of AFib 07/13/2020 8:00 p.m., then recurrent AFib 07/13/20 20 07/12/2020 Subjective: Pain only with movement. Not doing much moving around. Denied shortness of breath or lightheadedness. Date of service: 07/13/2020 Patient went back and AFib RVR with therapy this morning, heart rate 120s to 130s, appears asymptomatic. Denies any chest pain. Says she is short of breath ?once in a while.? Denies any pain. Review of Systems Cardiovascular: Cardiovascular: Denies chest pain, Denies pedal edema and Denies palpitations Respiratory: Respiratory: Denies chest congestion, Denies cough and Reports dyspnea Gastrointestinal: Gastrointestinal: Denies abdominal pain Musculoskeletal: Musculoskeletal: Denies arthralgias Integumentary/Breasts: Skin/Breast: Denies rash Neurologic: Reports confusion Psychiatric: Psychiatric: Reports behavioral changes (Withdrawn, confused) Exam Narrative: Exam Narrative: Older lady lying in bed, comfortable, eyes open but not very responsive. Answers some questions with 1 word answers, weak voice. Const: General: no acute distress HENMT: Mouth: Yes moist mucous membranes Eyes: EOM: EOMs intact bilaterally Neck: Neck: no JVD Resp: Effort & Inspection: normal respiratory effort Auscultation: clear to auscultation bilaterally Cardio: Rate: tachycardic Rhythm: abnormal rhythm irregularly irregular Heart sounds: Murmur heart sound present Other: 2/6 GENE upper sternal borders and apex GI: Inspection: non-distended GI Palp: Yes Soft to palpation and No Tenderness to palpation present (GI) Skin: Other: Has ecchymosis on arms Neuro: Cognition (Neuro): abnormal cognition (Appears confused, withdrawn) Extrem: General: no edema and no pedal edema Psych: Mental Status: mental status grossly abnormal Affect: No normal affect Objective Data Vital Signs Vital Signs: Vital Signs - 24 hr 07/12/20 08:55 07/12/20 09:10 07/12/20 10:10 Temperature 97.2 F L 97 F L 97.2 F L Pulse Rate 76 73 69 Respiratory Rate 16 17 16 Blood Pressure 131/63 124/61 140/66 Pulse Oximetry 100 100 100 07/12/20 11:10 07/12/20 12:00 07/12/20 12:10 Temperature 97.3 F L 97.4 F L Pulse Rate 71 66 70 Respiratory Rate 18 16 Blood Pressure 136/74 152/82 H Pulse Oximetry 98 98 07/12/20 12:19 07/12/20 14:00 07/12/20 16:00 Temperature 97.4 F L 97.4 F L Pulse Rate 70 74 73 Respiratory Rate 16 16 Blood Pressure 152/82 H 151/70 H Pulse Oximetry 98 97 07/12/20 18:00 07/12/20 20:00 07/12/20 20:41 Temperature 97.3 F L
--- NOTE | 2020-07-13 09:07 | PC.NURSE ---
call to pharmacy to request metoprolol dose, new med now
[2020-07-13] MEDS: METOPROLOL TARTRATE 25 MG TABLET PO ×3 (09:31→21:51)
[2020-07-13] MEDS: POTASSIUM CHLORIDE 20 MEQ TABLET.ER PO ×2 (09:31→17:44)
--- NOTE | 2020-07-13 10:38 | PM.IMPN ---
Progress Note: A&P Assessment and Plan (1) Atrial fibrillation with RVR: Code(s): I48.91 - Unspecified atrial fibrillation Status: Acute Assessment and Plan: Cardiology following - appreciate recommendations. Metoprolol initiated this morning. (2) Intertrochanteric fracture of left femur: Qualifiers: Encounter type: initial encounter Fracture alignment: displaced Fracture type: closed Qualified Code(s): S72.142A - Displaced intertrochanteric fracture of left femur, initial encounter for closed fracture Code(s): S72.142A - Displaced intertrochanteric fracture of left femur, initial encounter for closed fracture Status: Acute Assessment and Plan: POD#4 s/p ORIF. Wound care, DVT prophylaxis, pain control per Orthopedic recommendations. Monitor H&H while on Lovenox for prophylaxis. No signs or symptoms of acute bleeding. (3) UTI due to extended-spectrum beta lactamase (ESBL) producing Escherichia coli: Code(s): N39.0 - Urinary tract infection, site not specified; B96.29 - Other Escherichia coli [E. coli] as the cause of diseases classified elsewhere; Z16.12 - Extended spectrum beta lactamase (ESBL) resistance Status: Acute Assessment and Plan: Continue IV ertapenem (day 4 of 7). (4) Leukocytosis: Qualifiers: Leukocytosis type: unspecified Qualified Code(s): D72.829 - Elevated white blood cell count, unspecified Code(s): D72.829 - Elevated white blood cell count, unspecified Status: Acute Assessment and Plan: Resolved today. Suspected contributing factors include UTI, fall/trauma. (5) Chronic anemia: Code(s): D64.9 - Anemia, unspecified Status: Chronic Assessment and Plan: Received 1 unit packed RBC yesterday, Hgb improved and stable today. No signs of acute bleeding. Suspect anemia of chronic disease worsened with IV fluids and surgery. Continue monitor H&H and transfuse PRN. (6) Diastolic congestive heart failure: Qualifiers: Heart failure chronicity: chronic Qualified Code(s): I50.32 - Chronic diastolic (congestive) heart failure Code(s): I50.30 - Unspecified diastolic (congestive) heart failure Status: Chronic Assessment and Plan: Presumed diastolic dysfunction. Echocardiogram was ordered but patient was not able to cooperate to complete the study. (7) Hypercholesterolemia: Code(s): E78.00 - Pure hypercholesterolemia, unspecified Status: Chronic Assessment and Plan: Plan to resume statin therapy at discharge. (8) Acute metabolic encephalopathy: Code(s): G93.41 - Metabolic encephalopathy Status: Acute Assessment and Plan: Improving. Suspected it is due to UTI/sepsis/trauma. Cultures pending with no growth to date. CT brain with no acute findings. EMR report from Dr. Martines on 07/07 report the patient was confused at that time and was thought to be due to UTI. The patient was confused before the fall. (9) Sepsis: Qualifiers: Sepsis acute organ dysfunction status: unspecified Sepsis type: sepsis due to unspecified organism Qualified Code(s): A41.9 - Sepsis, unspecified organism Code(s): A41.9 - Sepsis, unspecified organism Status: Resolved Assessment and Plan: Yesterday with hypotension; tachycardia with A fib RVR and leukocytosis. Suspect secondary to UTI. Blood cultures pending with no growth to date. Subjective Date/time seen: 07/13/20 0930 Interval history: Ms Ovalle is an 84yo F admitted for left hip fractu
[2020-07-13 12:27] LABS: Hematocrit 28.6 % (37.0-47.0); Hemoglobin 9.4 g/dL (12.0-15.0)
[2020-07-14] VITALS (15 sets, daily range): BP systolic 113–175; BP diastolic 61–71; PULSE 61–73; RESP 16–22; TEMP 36.1–36.7; O2SAT 95–100
[2020-07-14 05:37] LABS: Basophils Percent Auto 0.1 % (0.2-1.2); Eosinophils Percent Auto 0.3 % (0-4.4); Hemoglobin 9.1 g/dL (12.0-15.0); Immature Granulocyte Absolute 0.08 K/mm3 (0.00-0.031); Immature Granulocyte Percent A 0.9 % (0-0.5); Lymphocytes Absolute Auto 0.86 K/mm3 (0.9-3.2); Mean Corpuscular HGB Conc 32.5 g/dl (32-36); Mean Corpuscular Hemoglobin 30.3 pg (26-34); Mean Corpuscular Volume 93.3 fl (80-100); Mean Platelet Volume 11.9 fl (7.4-10.4); Monocytes Absolute Auto 1.8 K/mm3 (0.1-0.6); Monocytes Percent Auto 20.5 % (2.6-8.5); Neutrophils Absolute Auto 5.9 K/mm3 (1.3-6.7); Neutrophils Percent Auto 68.2 % (45.5-73.1); Platelet Count Result 231 k/mm3 (150-375); Red Cell Distribution Width 14.5 % (11.5-14.5); White Blood Count 8.6 K/mm3 (4.5-10.0)
[2020-07-14 05:59] LABS: Anion Gap 5 mmol/L (8-16); Blood Urea Nitrogen 24 mg/dL (7-17); Calcium 8.6 mg/dL (8.4-10.2); Carbon Dioxide 24 mmol/L (22-30); Chloride 108 mmol/L (98-107); Estimated CRCL calculation 28 ml/min; Estimated Glomerular Filt Rate 53; Glucose 86 mg/dL (65-105); Magnesium 1.8 mg/dL (1.6-2.3); Potassium 3.6 mmol/L (3.4-5.0); Sodium 137 mmol/L (137-145)
[2020-07-14] MEDS: METOPROLOL TARTRATE 25 MG TABLET PO ×2 (06:03→20:43)
[2020-07-14] MEDS: ERTAPENEM 1 GM/NS 50 ML 1 GM/50 ML BAG IVPB (08:27)
[2020-07-14] MEDS: ACETAMINOPHEN 500 MG TABLET 1000 MG PO (08:30)
[2020-07-14] MEDS: DOCUSATE SODIUM 100 MG CAPSULE PO (08:31)
[2020-07-14] MEDS: FERROUS SULFATE 324 MG TABLET PO (08:31)
[2020-07-14] MEDS: POTASSIUM CHLORIDE 20 MEQ TABLET.ER PO (08:31)
[2020-07-14] MEDS: CHOLECALCIFEROL 1,000 UNITS TABLET 2000 UNITS PO (08:31)
[2020-07-14] MEDS: ENOXAPARIN 30 MG/0.3 ML SYRINGE SUB-Q (08:31)
[2020-07-14] MEDS: LIDOCAINE 5% PATCH 2 PATCH TRANSDERM (08:32)
--- NOTE | 2020-07-14 08:34 | PM.PNORT ---
Progress Note: A&P Assessment and Plan (1) Intertrochanteric fracture of left femur: Qualifiers: Encounter type: initial encounter Fracture alignment: displaced Fracture type: closed Qualified Code(s): S72.142A - Displaced intertrochanteric fracture of left femur, initial encounter for closed fracture Code(s): S72.142A - Displaced intertrochanteric fracture of left femur, initial encounter for closed fracture Status: Acute Assessment and Plan: POD #5 ORIF left hip fracture with short Cephalomedullary nail. Reviewed intraoperative imaging. Spoke with physical therapy. States patient is having trouble with transfers. She has been using a Sergio lift for transfers from bed to chair. Spoke with patient's nurse. Some pain at this time. Patient will need discharge to SNF. Weight barring as tolerated. Ambulate with walker. Subjective Subjective Date/Time Seen: 07/14/20 08:34 POD #5 ORIF left hip fracture with short Cephalomedullary nail Patient is an 84-year-old female who was admitted 07/08/2020 for left hip fracture after falling from standing height. She has a history of diastolic heart failure, CKD, Hypertension, IBS, dementia, and Paroxysmal atrial fibrillation. Unable to obtain detailed history due to patient's mental status. Patient is from assisted living. She complains of left hip pain. No previous left hip pain. ORIF left hip fracture with short Cephalomedullary nail on 07/09/2020. She is resting comfortably in a chair. She complains of some pain in her hip. No numbness, tingling, or other associated symptoms. Review of Systems Review of Systems: ROS unobtainable: Yes unobtainable due to mental status Exam Narrative: Exam Narrative: Const: General: no acute distress Orientation/consciousness: confusion Resp: Effort & Inspection: normal respiratory effort GI: GI Palp: Yes Soft to palpation Skin: General skin exam: no rashes or lesions noted Neuro: Other: Wiggles toes. Capillary refill brisk. Distal light touch sensation intact. Dorsalis pedis pulse palpable. Somnolent. Confused. Extrem: Other: No edema. No redness, ecchymosis, drainage, or warmth from incision site. Dressing intact. No calf tenderness. Thigh soft. Mild tenderness at incision site. Distal pulses palpable. Able to wiggle toes. Intact light touch sensation. Objective Data Vital Signs Vital Signs: Vital Signs - 24 hr 07/13/20 09:31 07/13/20 10:00 07/13/20 10:26 Temperature 97.5 F L Pulse Rate 126 H 136 H 89 Respiratory Rate 14 Blood Pressure 83/60 L Pulse Oximetry 97 07/13/20 10:58 07/13/20 12:00 07/13/20 14:00 Temperature 97.6 F Pulse Rate 86 68 67 Respiratory Rate 16 Blood Pressure 111/59 L Pulse Oximetry 96 07/13/20 14:24 07/13/20 16:00 07/13/20 18:00 Temperature 97.4 F L Pulse Rate 108 H 68 66 Respiratory Rate 16 Blood Pressure 144/67 H Pulse Oximetry 99 07/13/20 20:00 07/13/20 21:28 07/13/20 21:51 Temperature 97.4 F L Pulse Rate 62 62 62 Respiratory Rate 16 Blood Pressure 130/55 L Pulse Oximetry 96 07/14/20 00:00 07/14/20 01:32 07/14/20 04:00 Temperature 97.1 F L Pulse Rate 61 63 62 Respiratory Rate 16 Blood Pressure 175/71 H Pulse Oximetry 99 07/14/20 05:52 07/14/20 06:03 Temperature 97.0 F L Pulse Rate 62 66 Respiratory Rate 16 Blood Pressure 138/61 Pulse Oximetry 97 Intake/Output Intake/Output: Intake & Output 07/11/20 07/12/20 07/13/20 07/14/20 23:59 23:59 23:59 23:59 Intake Total 2440 2665 975 50 Output Total 400 Balance 2040 2665 975 50 Meds/Results Medications: Active Medications Generic Name Dose Route Start Last Admin Trade Name Freq PRN Reason Stop Dose Admin Acetaminophen 1,000 mg 07/09/20 16:32 07/14/20 08:30 Acetaminophen 500 Mg Tablet PO 1,000 mg Q6H PRN Administration pain 1-3 Docusate Sodium 100 mg 07/09/20 17:50 07/14/20 08:31 Docusate Sodium 100 Mg
--- NOTE | 2020-07-14 09:41 | PM.PNCARD ---
Progress Note: A&P Additional Plan Paroxysmal atrial fibrillation in this elderly lady following ORIF of hip fracture. Maintaining sinus rhythm with metoprolol treatment. Today will reduce metoprolol to q.12 hours and continue to follow telemetry while she is in the hospital. For the moment I would probably not anticoagulate this lady Sp Staples MD [facility] Subjective Date/time seen: 07/14/20 09:42 Interval history: Follow-up visit in this 84-year-old lady with paroxysmal atrial fibrillation following open reduction internal fixation of hip fracture. Patient is sitting in the chair very somnolent does respond to questioning but appears very lethargic Exam Const: General: comfortable and no acute distress Other: Elderly white female with [place] sitting in chair responsive but very somnolent HENMT: Mouth: Yes dry mucous membranes Eyes: Sclera: sclerae normal Pupils: Equal, round and reactive pupils present Neck: Neck: supple and no JVD Thyroid: thyroid normal Resp: Effort & Inspection: normal respiratory effort Auscultation: clear to auscultation bilaterally Cardio: Rate: regular rate GI: GI Palp: Yes Soft to palpation Auscultation: normal bowel sounds Skin: General skin exam: normal color Neuro: Other: Responsive but very lethargic as detailed above Extrem: General: normal to inspection Objective Data Vital Signs Vital Signs: Vital Signs - 24 hr 07/13/20 10:00 07/13/20 10:26 07/13/20 10:58 Temperature 36.4 C L Pulse Rate 136 H 89 86 Respiratory Rate 14 Blood Pressure 83/60 L Pulse Oximetry 97 07/13/20 12:00 07/13/20 14:00 07/13/20 14:24 Temperature 36.4 C Pulse Rate 68 67 108 H Respiratory Rate 16 Blood Pressure 111/59 L Pulse Oximetry 96 07/13/20 16:00 07/13/20 18:00 07/13/20 20:00 Temperature 36.3 C L Pulse Rate 68 66 62 Respiratory Rate 16 Blood Pressure 144/67 H Pulse Oximetry 99 07/13/20 21:28 07/13/20 21:51 07/14/20 00:00 Temperature 36.3 C L Pulse Rate 62 62 61 Respiratory Rate 16 Blood Pressure 130/55 L Pulse Oximetry 96 07/14/20 01:32 07/14/20 04:00 07/14/20 05:52 Temperature 36.2 C L 36.1 C L Pulse Rate 63 62 62 Respiratory Rate 16 16 Blood Pressure 175/71 H 138/61 Pulse Oximetry 99 97 07/14/20 06:03 Temperature Pulse Rate 66 Respiratory Rate Blood Pressure Pulse Oximetry Intake/Output Intake/Output: Intake & Output 07/11/20 07/12/20 07/13/20 07/14/20 23:59 23:59 23:59 23:59 Intake Total 2440 2665 975 50 Output Total 400 Balance 2040 2665 975 50 Meds/Results Medications: Active Medications Generic Name Dose Route Start Last Admin Trade Name Freq PRN Reason Stop Dose Admin Acetaminophen 1,000 mg 07/09/20 16:32 07/14/20 08:30 Acetaminophen 500 Mg Tablet PO 1,000 mg Q6H PRN Administration pain 1-3 Docusate Sodium 100 mg 07/09/20 17:50 07/14/20 08:31 Docusate Sodium 100 Mg Capsule PO 100 mg BID IAIN Administration Enoxaparin Sodium 30 mg 07/10/20 09:00 07/14/20 08:31 Enoxaparin 30 Mg/0.3 Ml Syringe SUB-Q 30 mg DAILY IAIN Administration Ferrous Sulfate 324 mg 07/09/20 09:00 07/14/20 08:31 Ferrous Sulfate 324 Mg Tablet PO 324 mg BID IAIN Administration Ertapenem 1 gm in 50 mls @ 100 mls/hr 07/10/20 09:00 07/14/20 08:27 Invanz 1 Gm/Ns 50 Ml IVPB 100 mls/hr Q24H IAIN Administration Lidocaine 2 patch 07/09/20 09:00 07/14/20 08:32 Lidocaine 5% Patch TRANSDERM 2 patch DAILY IAIN Administration Magnesium Hydroxide 30 ml 07/09/20 17:50 Magnesium Hydroxide Susp 30 Ml Udc PO BID PRN Constipation Metoprolol Tartrate 25 mg 07/14/20 21:00 Metoprolol Tartrate 25 Mg Tablet PO Q12HR IAIN Naloxone HCl 0.1 mg 07/09/20 17:50 Naloxone Hcl 0.4 Mg/Ml Vial IV PUSH Q2M PRN Opiate Reversal Ondansetron HCl 4 mg 07/08/20 19:10 Ondansetron Inj 4 Mg/2 Ml Vial IV PUSH Q6H PRN Nause
--- NOTE | 2020-07-14 10:25 | PM.IMPN ---
Progress Note: A&P Assessment and Plan (1) Atrial fibrillation with RVR: Code(s): I48.91 - Unspecified atrial fibrillation Status: Acute Assessment and Plan: Cardiology following - appreciate recommendations. Metoprolol initiated 07/13; she converted to normal sinus rhythm yesterday around noon and is in normal sinus still today. (2) Intertrochanteric fracture of left femur: Qualifiers: Encounter type: initial encounter Fracture alignment: displaced Fracture type: closed Qualified Code(s): S72.142A - Displaced intertrochanteric fracture of left femur, initial encounter for closed fracture Code(s): S72.142A - Displaced intertrochanteric fracture of left femur, initial encounter for closed fracture Status: Acute Assessment and Plan: POD#4 s/p ORIF by Dr Arredondo 07/09/20. Wound care, DVT prophylaxis, pain control per Orthopedic recommendations. Monitor H&H while on Lovenox for prophylaxis. No signs or symptoms of acute bleeding. (3) UTI due to extended-spectrum beta lactamase (ESBL) producing Escherichia coli: Code(s): N39.0 - Urinary tract infection, site not specified; B96.29 - Other Escherichia coli [E. coli] as the cause of diseases classified elsewhere; Z16.12 - Extended spectrum beta lactamase (ESBL) resistance Status: Acute Assessment and Plan: Continue IV ertapenem (day 5 of 7). (4) Chronic anemia: Code(s): D64.9 - Anemia, unspecified Status: Chronic Assessment and Plan: Received 1 unit packed RBC 07/12, Hgb improved and remaining stable in 9s. No signs of acute bleeding. Suspect anemia of chronic disease worsened with IV fluids and surgery. Continue monitor H&H and transfuse PRN. (5) Diastolic congestive heart failure: Qualifiers: Heart failure chronicity: chronic Qualified Code(s): I50.32 - Chronic diastolic (congestive) heart failure Code(s): I50.30 - Unspecified diastolic (congestive) heart failure Status: Chronic Assessment and Plan: Presumed diastolic dysfunction. Echocardiogram was ordered but patient was not able to cooperate to complete the study. (6) Hypercholesterolemia: Code(s): E78.00 - Pure hypercholesterolemia, unspecified Status: Chronic Assessment and Plan: Plan to resume statin therapy at discharge. (7) Acute metabolic encephalopathy: Code(s): G93.41 - Metabolic encephalopathy Status: Acute Assessment and Plan: Suspected it is in part due to UTI/sepsis/trauma superimposed on dementia. Cultures pending with no growth to date. CT brain with no acute findings. EMR report from Dr. Martines on 07/07 report the patient was confused at that time and was thought to be due to UTI. The patient was confused before the fall and son, He, confirms this. He describes she had a very slow recovery cognitively after surgery for right hip fracture last year. (8) Sepsis: Qualifiers: Sepsis type: sepsis due to unspecified organism Sepsis acute organ dysfunction status: unspecified Qualified Code(s): A41.9 - Sepsis, unspecified organism Code(s): A41.9 - Sepsis, unspecified organism Status: Resolved Assessment and Plan: Initially with hypotension; tachycardia with A fib RVR and leukocytosis, all improving. Suspect secondary to UTI. Blood cultures pending with no growth to date. Subjective Date/time seen: 07/14/20 0945 Interval history: Ms Ovalle is an 84yo F admitted for left hip fracture now POD #5 s/p ORIF with UTI and postoperative atrial fibrillation. She is very weak, responds to q
[2020-07-15] VITALS (14 sets, daily range): BP systolic 106–122; BP diastolic 52–68; PULSE 63–78; RESP 16; TEMP 36–36.9; O2SAT 96–99
[2020-07-15 05:33] LABS: Basophils Percent Auto 0.1 % (0.2-1.2); Eosinophils Percent Auto 0.3 % (0-4.4); Hemoglobin 9.3 g/dL (12.0-15.0); Immature Granulocyte Absolute 0.08 K/mm3 (0.00-0.031); Immature Granulocyte Percent A 0.8 % (0-0.5); Lymphocytes Absolute Auto 0.86 K/mm3 (0.9-3.2); Lymphocytes Percent Auto 8.2 % (18.3-44.2); Mean Corpuscular HGB Conc 32.1 g/dl (32-36); Mean Corpuscular Hemoglobin 30.9 pg (26-34); Mean Corpuscular Volume 96.3 fl (80-100); Mean Platelet Volume 11.7 fl (7.4-10.4); Monocytes Absolute Auto 2.2 K/mm3 (0.1-0.6); Monocytes Percent Auto 20.6 % (2.6-8.5); Neutrophils Absolute Auto 7.3 K/mm3 (1.3-6.7); Platelet Count Result 266 k/mm3 (150-375); Red Blood Count 3.01 M/mm3 (4.2-5.4); Red Cell Distribution Width 14.7 % (11.5-14.5); White Blood Count 10.5 K/mm3 (4.5-10.0)
[2020-07-15 05:40] LABS: Sodium 139 mmol/L (137-145)
[2020-07-15 05:58] LABS: Alanine Aminotransferase 41 U/L (4-35); Albumin Level 2.6 g/dL (3.5-5.1); Alkaline Phosphatase 94 U/L (38-126); Anion Gap 5 mmol/L (8-16); Aspartate Amino Transferase 32 U/L (14-36); Bilirubin,Total 0.7 mg/dL (0.2-1.3); Blood Urea Nitrogen 23 mg/dL (7-17); Calcium 8.6 mg/dL (8.4-10.2); Carbon Dioxide 23 mmol/L (22-30); Chloride 111 mmol/L (98-107); Estimated CRCL calculation 28 ml/min; Estimated Glomerular Filt Rate 53; Glucose 72 mg/dL (65-105); Magnesium 1.9 mg/dL (1.6-2.3); Potassium 3.7 mmol/L (3.4-5.0)
[2020-07-15] MEDS: METOPROLOL TARTRATE 25 MG TABLET PO ×2 (08:29→21:08)
[2020-07-15] MEDS: DOCUSATE SODIUM 100 MG CAPSULE PO (08:29)
[2020-07-15] MEDS: FERROUS SULFATE 324 MG TABLET PO (08:29)
[2020-07-15] MEDS: ENOXAPARIN 30 MG/0.3 ML SYRINGE SUB-Q (08:29)
[2020-07-15] MEDS: CHOLECALCIFEROL 1,000 UNITS TABLET 2000 UNITS PO (08:29)
[2020-07-15] MEDS: LIDOCAINE 5% PATCH 2 PATCH TRANSDERM (08:30)
[2020-07-15] MEDS: ERTAPENEM 1 GM/NS 50 ML 1 GM/50 ML BAG IVPB (08:33)
--- NOTE | 2020-07-15 11:15 | PM.PNORT ---
Progress Note: A&P Assessment and Plan (1) Intertrochanteric fracture of left femur: Qualifiers: Encounter type: initial encounter Fracture alignment: displaced Fracture type: closed Qualified Code(s): S72.142A - Displaced intertrochanteric fracture of left femur, initial encounter for closed fracture Code(s): S72.142A - Displaced intertrochanteric fracture of left femur, initial encounter for closed fracture Status: Acute Assessment and Plan: POD #6 ORIF left hip fracture with short Cephalomedullary nail. Reviewed intraoperative imaging. Spoke with patient's nurse. Patient is not cooperative with PT. Patient is ready for discharge from ortho perspective. Care coordination working with patient's family to determine plan for SNF or halfway care. Subjective Subjective Date/Time Seen: 07/15/20 11:15 POD #6 ORIF left hip fracture with short Cephalomedullary nail Patient is resting comfortably in bed. She denies pain at her hip. No numbness, tingling, or other associated symptoms. Per pateint's nurse, she is not participating well with PT. She has been taking sips of water and eating some. Patient is an 84-year-old female who was admitted 07/08/2020 for left hip fracture after falling from standing height. She has a history of diastolic heart failure, CKD, Hypertension, IBS, dementia, and Paroxysmal atrial fibrillation. Unable to obtain detailed history due to patient's mental status. Patient is from assisted living. No previous left hip pain. ORIF left hip fracture with short Cephalomedullary nail on 07/09/2020. Review of Systems Review of Systems: ROS unobtainable: Yes unobtainable due to mental status Exam Narrative: Exam Narrative: Const: General: no acute distress Orientation/consciousness: confusion Resp: Effort & Inspection: normal respiratory effort GI: GI Palp: Yes Soft to palpation Skin: General skin exam: no rashes or lesions noted Neuro: Other: Wiggles toes. Capillary refill brisk. Distal light touch sensation intact. Dorsalis pedis pulse palpable. Somnolent. Confused. Extrem: Other: No edema. No redness, ecchymosis, drainage, or warmth from incision site. Dressing clean, dry, and intact. No calf tenderness. Thigh soft. Mild tenderness at incision site. Distal pulses palpable. Able to wiggle toes. Intact light touch sensation distal to surgical site. Objective Data Vital Signs Vital Signs: Vital Signs - 24 hr 07/14/20 12:00 07/14/20 13:54 07/14/20 16:00 Temperature 97.5 F L Pulse Rate 68 68 63 Respiratory Rate 16 Blood Pressure 151/68 H Pulse Oximetry 100 07/14/20 18:00 07/14/20 20:00 07/14/20 20:43 Temperature 97.6 F Pulse Rate 68 69 Respiratory Rate 22 H Blood Pressure 126/62 Pulse Oximetry 95 95 07/14/20 20:58 07/14/20 21:58 07/15/20 00:00 Temperature 97.7 F Pulse Rate 67 67 67 Respiratory Rate 16 Blood Pressure 130/67 Pulse Oximetry 98 07/15/20 02:00 07/15/20 04:05 07/15/20 06:00 Temperature 96.8 F L 97.1 F L Pulse Rate 63 64 66 Respiratory Rate 16 16 Blood Pressure 115/56 L 111/52 L Pulse Oximetry 99 96 07/15/20 08:00 07/15/20 08:29 07/15/20 10:00 Temperature 98.3 F Pulse Rate 71 78 66 Respiratory Rate 16 Blood Pressure 122/68 Pulse Oximetry 98 Intake/Output Intake/Output: Intake & Output 07/12/20 07/13/20 07/14/20 07/15/20 23:59 23:59 23:59 23:59 Intake Total 2665 975 220 230 Balance 2665 975 220 230 Meds/Results Medications: Active Medications Generic Name Dose Route Start Last Admin Trade Name Freq PRN Reason Stop Dose Admin Acetaminophen 1,000 mg 07/09/20 16:32 07/14/20 08:30 Acetaminophen 500 Mg Tablet PO 1,000 mg Q6H PRN Administration pain 1-3 Docusate Sodium 100 mg 07/09/20 17:50 07/15/20 08:29 Docusate Sodium 100 Mg Capsule PO 100 mg BID IAIN Administration Enoxaparin Sodium 30 mg 07/10/20 09:00 07/15/20 08:29 Enoxapar
--- NOTE | 2020-07-15 11:16 | PM.IMPN ---
Progress Note: A&P Assessment and Plan (1) Atrial fibrillation with RVR: Code(s): I48.91 - Unspecified atrial fibrillation Status: Acute Assessment and Plan: Cardiology following - appreciate recommendations. Metoprolol initiated 07/13; she converted to normal sinus rhythm yesterday around noon 07/13 and is in normal sinus still today; very brief recurrence of elevated rate yesterday 3pm but none since then. (2) Intertrochanteric fracture of left femur: Qualifiers: Encounter type: initial encounter Fracture alignment: displaced Fracture type: closed Qualified Code(s): S72.142A - Displaced intertrochanteric fracture of left femur, initial encounter for closed fracture Code(s): S72.142A - Displaced intertrochanteric fracture of left femur, initial encounter for closed fracture Status: Acute Assessment and Plan: POD#6 s/p ORIF by Dr Arredondo 07/09/20. Wound care, DVT prophylaxis, pain control per Orthopedic recommendations. Monitor H&H while on Lovenox for prophylaxis. No signs or symptoms of acute bleeding. Awaiting insurance authorization and discharge planning. (3) UTI due to extended-spectrum beta lactamase (ESBL) producing Escherichia coli: Code(s): N39.0 - Urinary tract infection, site not specified; B96.29 - Other Escherichia coli [E. coli] as the cause of diseases classified elsewhere; Z16.12 - Extended spectrum beta lactamase (ESBL) resistance Status: Acute Assessment and Plan: Continue IV ertapenem (day 6 of 7). (4) Chronic anemia: Code(s): D64.9 - Anemia, unspecified Status: Chronic Assessment and Plan: Received 1 unit packed RBC 07/12, Hgb improved and remaining stable in 9s. No signs of acute bleeding. Suspect anemia of chronic disease worsened with IV fluids and surgery. Continue monitor H&H and transfuse PRN. (5) Diastolic congestive heart failure: Qualifiers: Heart failure chronicity: chronic Qualified Code(s): I50.32 - Chronic diastolic (congestive) heart failure Code(s): I50.30 - Unspecified diastolic (congestive) heart failure Status: Chronic Assessment and Plan: Presumed diastolic dysfunction. Echocardiogram was ordered but patient was not able to cooperate to complete the study. (6) Hypercholesterolemia: Code(s): E78.00 - Pure hypercholesterolemia, unspecified Status: Chronic Assessment and Plan: Plan to resume statin therapy at discharge. (7) Acute metabolic encephalopathy: Code(s): G93.41 - Metabolic encephalopathy Status: Acute Assessment and Plan: Suspected it is in part due to UTI/sepsis/trauma superimposed on dementia. Blood cultures pending with no growth to date. CT brain with no acute findings. EMR report from Dr. Martines on 07/07 report the patient was confused at that time and was thought to be due to UTI. The patient was confused before the fall and son, He, confirms this. He describes she had a very slow recovery cognitively after surgery for right hip fracture last year. (8) Sepsis: Qualifiers: Sepsis type: sepsis due to unspecified organism Sepsis acute organ dysfunction status: unspecified Qualified Code(s): A41.9 - Sepsis, unspecified organism Code(s): A41.9 - Sepsis, unspecified organism Status: Resolved Assessment and Plan: Initially with hypotension; tachycardia with A fib RVR and leukocytosis, all improving. Suspect secondary to UTI. Blood cultures pending with no growth to date. Subjective Date/time seen: 07/15/20 0945 Interval history: Ms H
--- NOTE | 2020-07-15 13:42 | PCDIET ---
Nutrition Follow-Up Complete: Inadequate Oral Intake as related to left hip fx as evidenced by weight loss reported and poor po intake. Meet estimated nutritional needs. Goal:Goal not met. Continue goal. Pt current nutrition is regular + Ensure compact BID Nutrition recommendation: agree Last recorded weight is 48.6 kg, recommend daily weight Bowel Motility: 07/11 (milk of mg provided) Labs Reviewed: Albumin 2.6, Protein 5.0, GFR 53, BUN 23, 41 ALT Meds Noted:Colace, Fe, lovenox, vitamin D, Zofran Additional Notes: Pt with limited PO intake (2&5%) 2/2 AMS. Recommend assistance with feedings. Regular diet appropriate and Ensure compact provided BID to assist in meeting pt needs. Due to dementia, I do not recommend enteral nutrition or PPN for this pt. We will continue to monitor wt, po intake, labs every five days.
[2020-07-15 14:03] LABS: SARS-CoV-2 RNA PCR Negative
[2020-07-16] VITALS (17 sets, daily range): BP systolic 92–114; BP diastolic 46–65; PULSE 61–84; RESP 14–20; TEMP 36.7–37.2; O2SAT 95–100
[2020-07-16 05:25] LABS: Hemoglobin 9.5 g/dL (12.0-15.0); Mean Corpuscular HGB Conc 31.7 g/dl (32-36); Mean Corpuscular Hemoglobin 29.7 pg (26-34); Mean Corpuscular Volume 93.8 fl (80-100); Mean Platelet Volume 11.6 fl (7.4-10.4); Platelet Count Result 322 k/mm3 (150-375); Red Cell Distribution Width 14.6 % (11.5-14.5); White Blood Count 14.5 K/mm3 (4.5-10.0)
[2020-07-16 05:42] LABS: Anion Gap 5 mmol/L (8-16); Blood Urea Nitrogen 25 mg/dL (7-17); Calcium 8.9 mg/dL (8.4-10.2); Carbon Dioxide 24 mmol/L (22-30); Chloride 107 mmol/L (98-107); Estimated CRCL calculation 31 ml/min; Estimated Glomerular Filt Rate 60; Glucose 100 mg/dL (65-105); Magnesium 1.9 mg/dL (1.6-2.3); Potassium 3.5 mmol/L (3.4-5.0); Sodium 136 mmol/L (137-145)
--- NOTE | 2020-07-16 07:33 | PC.NURSE ---
witnessed aspiration of water twice during assessment of pt. Pt had minor aspiration with first episode and audible wet gurgling with second episode. Pt had minimal cough reflex with both events. Lungs sound clear and pt O2 sat normal at this time.
[2020-07-16] MEDS: SODIUM CHLORIDE 0.9% IV 250 ML 999 ML IV CONT (08:51)
[2020-07-16] MEDS: LIDOCAINE 5% PATCH 2 PATCH TRANSDERM (08:55)
[2020-07-16] MEDS: ENOXAPARIN 30 MG/0.3 ML SYRINGE SUB-Q (08:55)
[2020-07-16] MEDS: ERTAPENEM 1 GM/NS 50 ML 1 GM/50 ML BAG IVPB (09:07)
--- NOTE | 2020-07-16 10:10 | PCSTNOTE ---
Please refer to the Bedside Swallow Evaluation in the EMR. Please note, silent aspiration cannot be ruled out at bedside.
--- NOTE | 2020-07-16 10:58 | PM.PNORT ---
Progress Note: A&P Assessment and Plan (1) Intertrochanteric fracture of left femur: Qualifiers: Encounter type: initial encounter Fracture alignment: displaced Fracture type: closed Qualified Code(s): S72.142A - Displaced intertrochanteric fracture of left femur, initial encounter for closed fracture Code(s): S72.142A - Displaced intertrochanteric fracture of left femur, initial encounter for closed fracture Status: Acute Assessment and Plan: POD #7 ORIF left hip fracture with short Cephalomedullary nail. Reviewed intraoperative imaging. Spoke with patient's nurse. Patient is not cooperative with PT. Patient is ready for discharge from ortho perspective. Discharge to SNF. Daily dressing changes until 2 weeks postoperatively. Discontinue taya 2 weeks postoperatively. May weight bear as tolerated. Tylenol for pain. Continue Lovenox 30 mg subcu daily for total of 28 days postoperatively. Obtain radiographs at the nursing facility 4 weeks postoperatively and notify my office for review. Depending on patient's progress, follow-up may be virtual/radiographic only. Subjective Subjective Date/Time Seen: 07/16/20 10:58 POD #7 ORIF left hip fracture with short Cephalomedullary nail Patient getting ready for bath at the time of visit. She denies pain at her hip. No numbness, tingling, or other associated symptoms. Per pateint's nurse, she is not participating well with PT. Her nurse states that she had an episode of aspirating while drinking yesterday. Patient is an 84-year-old female who was admitted 07/08/2020 for left hip fracture after falling from standing height. She has a history of diastolic heart failure, CKD, Hypertension, IBS, dementia, and Paroxysmal atrial fibrillation. Unable to obtain detailed history due to patient's mental status. Patient is from assisted living. No previous left hip pain. ORIF left hip fracture with short Cephalomedullary nail on 07/09/2020. Review of Systems Review of Systems: ROS unobtainable: Yes unobtainable due to mental status Exam Narrative: Exam Narrative: Const: General: no acute distress Orientation/consciousness: confusion Resp: Effort & Inspection: normal respiratory effort GI: GI Palp: Yes Soft to palpation Skin: General skin exam: no rashes or lesions noted Neuro: Other: Wiggles toes. Capillary refill brisk. Distal light touch sensation intact. Dorsalis pedis pulse palpable. Somnolent. Confused. Extrem: Other: No edema. No redness, ecchymosis, drainage, or warmth from incision site. Dressing clean, dry, and intact. Calf nontender. Thigh soft. Mild tenderness at incision site. Distal pulses palpable. Able to wiggle toes. Intact light touch sensation distal to surgical site. Objective Data Vital Signs Vital Signs: Vital Signs - 24 hr 07/15/20 12:00 07/15/20 14:00 07/15/20 16:00 Temperature 98.1 F Pulse Rate 71 67 67 Respiratory Rate 16 Blood Pressure 122/60 Pulse Oximetry 98 07/15/20 18:00 07/15/20 20:00 07/15/20 21:01 Temperature 98.5 F 97.8 F Pulse Rate 73 68 75 Respiratory Rate 16 16 Blood Pressure 106/52 L 117/59 L Pulse Oximetry 97 98 07/15/20 21:08 07/16/20 00:00 07/16/20 02:00 Temperature 98.2 F Pulse Rate 75 71 73 Respiratory Rate 16 Blood Pressure 98/48 L Pulse Oximetry 96 07/16/20 04:00 07/16/20 05:51 07/16/20 07:30 Temperature 98.1 F 98.2 F Pulse Rate 77 76 75 Respiratory Rate 16 14 Blood Pressure 92/46 L 92/53 L Pulse Oximetry 95 99 07/16/20 07:40 07/16/20 10:12 07/16/20 10:45 Temperature 98.5 F Pulse Rate 77 78 Respiratory Rate 14 Blood Pressure 94/48 L 95/52 L 114/59 L Pulse Oximetry 97 97 Intake/Output Intake/Output: Intake & Output 07/13/20 07/14/20 07/15/20 07/16/20 23:59 23:59 23:59 23:59 Intake Total 975 220 970 300 Balance 975 220 970 300 Meds/Results Medications: Active Medications Generic Name Dose Route Start Last
--- NOTE | 2020-07-16 11:07 | PM.IMPN ---
Progress Note: A&P Assessment and Plan (1) Atrial fibrillation with RVR: Code(s): I48.91 - Unspecified atrial fibrillation Status: Acute Assessment and Plan: Cardiology following - appreciate recommendations. Metoprolol initiated 07/13 maintaining NSR today. Metoprolol was held this AM secondary to hypotension. (2) Intertrochanteric fracture of left femur: Qualifiers: Encounter type: initial encounter Fracture alignment: displaced Fracture type: closed Qualified Code(s): S72.142A - Displaced intertrochanteric fracture of left femur, initial encounter for closed fracture Code(s): S72.142A - Displaced intertrochanteric fracture of left femur, initial encounter for closed fracture Status: Acute Assessment and Plan: POD#7 s/p ORIF by Dr Arredondo 07/09/20. Wound care, DVT prophylaxis, pain control per Orthopedic recommendations. Monitor H&H while on Lovenox for prophylaxis. No signs or symptoms of acute bleeding. Awaiting insurance authorization and discharge planning. (3) UTI due to extended-spectrum beta lactamase (ESBL) producing Escherichia coli: Code(s): N39.0 - Urinary tract infection, site not specified; B96.29 - Other Escherichia coli [E. coli] as the cause of diseases classified elsewhere; Z16.12 - Extended spectrum beta lactamase (ESBL) resistance Status: Acute Assessment and Plan: Continue last day of IV ertapenem (day 7 of 7). (4) Chronic anemia: Code(s): D64.9 - Anemia, unspecified Status: Chronic Assessment and Plan: Received 1 unit packed RBC 07/12, Hgb improved and remaining stable in 9s. No signs of acute bleeding. Suspect anemia of chronic disease worsened with IV fluids and surgery. Continue monitor H&H and transfuse PRN. (5) Diastolic congestive heart failure: Qualifiers: Heart failure chronicity: chronic Qualified Code(s): I50.32 - Chronic diastolic (congestive) heart failure Code(s): I50.30 - Unspecified diastolic (congestive) heart failure Status: Chronic Assessment and Plan: Presumed diastolic dysfunction. Echocardiogram was ordered but patient was not able to cooperate to complete the study. Limited view shows EF 60-65%, moderate pulmonary hypertension. (6) Hypercholesterolemia: Code(s): E78.00 - Pure hypercholesterolemia, unspecified Status: Chronic Assessment and Plan: Plan to resume statin therapy at discharge. 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 Blood cultures pending with no growth to date. CT brain 07/11 with no acute findings. EMR report from Dr. Martines on 07/07 report the patient was confused at that time and was thought to be due to UTI. The patient was confused before the fall and son, He, confirms this. He describes she had a very slow recovery after surgery for right hip fracture last year. (8) Sepsis: Qualifiers: Sepsis type: sepsis due to unspecified organism Sepsis acute organ dysfunction status: unspecified Qualified Code(s): A41.9 - Sepsis, unspecified organism Code(s): A41.9 - Sepsis, unspecified organism Status: Resolved Assessment and Plan: Initially with hypotension; tachycardia with A fib RVR and leukocytosis, all improving. Suspect secondary to UTI which has been treated. Blood cultures pending with no growth to date. (9) Generalized weakness: Code(s): R53.
[2020-07-16] MEDS: CHOLECALCIFEROL 1,000 UNITS TABLET 2000 UNITS PO (12:27)
[2020-07-16] MEDS: DOCUSATE SODIUM 100 MG CAPSULE PO ×2 (12:27→17:19)
[2020-07-16] MEDS: FERROUS SULFATE 324 MG TABLET PO ×2 (12:27→17:19)
--- NOTE | 2020-07-16 14:29 | PM.PNCARD ---
Progress Note: A&P Assessment and Plan (1) Atrial fibrillation with RVR: Code(s): I48.91 - Unspecified atrial fibrillation Status: Acute Assessment and Plan: Postoperatively, she went into atrial fibrillation with RVR with hypotension. Fluid resuscitated with normal saline. Heart rate improved after 1 dose of IV digoxin. Converted to normal sinus 07/11/2020 at 12:27 p.m. 1 short burst at approximately 7:30 p.m. on 07/11/2020. Recurrent AFib RVR 07/13/2020. Currently on DVT prophylaxis with low molecular weight heparin. Therapeutic anticoagulation to be considered when hemoglobin improves/stabilizes. Candidacy for chronic anticoagulation to be determined. It is uncertain if she has gait instability and risk for fall. At this time she does not participate in physical therapy. For Sergio lift is being used to get her out of bed. Echocardiogram with Doppler to rule out any major structural heart disease was ordered. She refused to cooperate with study. Started on beta-yu Blood pressure this morning was soft. 250 cc bolus of IV fluids were given. Blood pressure improved. Change Metoprolol tartrate 25 mg q.12 hours to Metoprolol succinate 25 mg daily. Monitor heart rate and blood pressure response. Probable discharge tomorrow. Additional Plan Plan discussed with Dr. Staples [id number] 07/16/2020 Subjective Date/time seen: 07/16/20 14:29 Interval history: Follow-up for: left hip fracture with postoperative atrial fibrillation. Converted to normal sinus rhythm 07/11/2020 at 12:27 p.m.. Recurrent episode of atrial fibrillation on 07/13/2020. Was started on beta-yu. Has maintained normal sinus rhythm with rare episodes of short burst. Date of service: 07/16/2020 Subjective: Again in bed slouched to the right side. Arouses but answers questions nonsensically. Denied pain. Denied shortness of breath. Blank stare when asked about dizziness or palpitations. Review of Systems Constitutional: Constitutional: Reports fatigue Eyes: Eyes: Denies blind spots and Denies blurry vision ENT: Denies dizziness, Reports hearing loss, Denies throat swelling and Denies tongue swelling Cardiovascular: Cardiovascular: Denies chest pain, Denies pedal edema, Denies palpitations, Reports dyspnea and Denies dyspnea on exertion Respiratory: Respiratory: Denies chest congestion, Denies cough, Reports dyspnea, Denies dyspnea on exertion and Denies wheezing Gastrointestinal: Gastrointestinal: Denies abdominal pain, Denies nausea and Denies vomiting Genitourinary: Genitourinary: Denies hematuria Musculoskeletal: Musculoskeletal: Denies arthralgias Integumentary/Breasts: Skin/Breast: Denies erythema and Denies rash Neurologic: Reports behavioral changes (Withdrawn, confused), Reports confusion, Denies dizziness and Reports weakness Psychiatric: Psychiatric: Denies anxiety, Reports behavioral changes (Withdrawn, confused) and Reports confusion Endocrine: Endocrine: Denies flushing and Denies palpitations Hematologic/Lymphatic: Hematologic/Lymphatic: Reports easy bruising Allergic/Immunologic: Allergic/Immunologic: Denies throat swelling, Denies tongue swelling and Denies wheezing Exam Narrative: Exam Narrative: PHYSICAL EXAMINATION: GENERAL: Elderly female sleeping in bed. Arouses easily. Confused EYES: Extraocular movements intact, pallor EARS: External ears appear normal. Hard of hearing NOSE: Normal and patent, no discharge MOUTH: Mucous membranes moist, tongue normal NECK: Supple, no JVD CHEST: decreased breath sounds, decreased effort HEART: Normal rate, regular rhythm without murmur ABDOMEN: Soft, nontender. Bowel sounds x4 quadrants. NEUROLOGICAL: somnolent . Answers simple questions but is not fully oriented. MUSCULOSKELETAL: left hip surgical wound EXTREMITIES: No pedal edema, no clubbing, no cyanosis SKIN: ecchymosis bilateral arms PSYCHIATRIC: c
[2020-07-16] MEDS: METOPROLOL SUCCINATE EXT REL 25 MG TABCR PO (15:27)
[2020-07-17] VITALS (18 sets, daily range): BP systolic 65–104; BP diastolic 30–58; PULSE 63–141; RESP 12–22; TEMP 36.1–37.1; O2SAT 94–100
[2020-07-17 07:43] LABS: Basophils Percent Auto 0.1 % (0.2-1.2); Eosinophils Percent Auto 0.2 % (0-4.4); Hematocrit 28.5 % (37.0-47.0); Hemoglobin 9.2 g/dL (12.0-15.0); Immature Granulocyte Absolute 0.07 K/mm3 (0.00-0.031); Immature Granulocyte Percent A 0.7 % (0-0.5); Lymphocytes Absolute Auto 0.99 K/mm3 (0.9-3.2); Lymphocytes Percent Auto 10.4 % (18.3-44.2); Mean Corpuscular HGB Conc 32.3 g/dl (32-36); Mean Corpuscular Hemoglobin 30.4 pg (26-34); Mean Corpuscular Volume 94.1 fl (80-100); Mean Platelet Volume 11.6 fl (7.4-10.4); Monocytes Absolute Auto 2.6 K/mm3 (0.1-0.6); Monocytes Percent Auto 27.8 % (2.6-8.5); Neutrophils Absolute Auto 5.8 K/mm3 (1.3-6.7); Neutrophils Percent Auto 60.8 % (45.5-73.1); Platelet Count Result 313 k/mm3 (150-375); Red Blood Count 3.03 M/mm3 (4.2-5.4); Red Cell Distribution Width 14.6 % (11.5-14.5); White Blood Count 9.5 K/mm3 (4.5-10.0)
[2020-07-17 07:56] LABS: Anion Gap 5 mmol/L (8-16); Blood Urea Nitrogen 24 mg/dL (7-17); Calcium 8.7 mg/dL (8.4-10.2); Carbon Dioxide 26 mmol/L (22-30); Chloride 108 mmol/L (98-107); Estimated CRCL calculation 31 ml/min; Estimated Glomerular Filt Rate 60; Glucose 92 mg/dL (65-105); Potassium 3.2 mmol/L (3.4-5.0); Sodium 139 mmol/L (137-145)
[2020-07-17] MEDS: FERROUS SULFATE 324 MG TABLET PO (08:14)
[2020-07-17] MEDS: ENOXAPARIN 30 MG/0.3 ML SYRINGE SUB-Q (08:14)
[2020-07-17] MEDS: CHOLECALCIFEROL 1,000 UNITS TABLET 2000 UNITS PO (08:14)
[2020-07-17] MEDS: DOCUSATE SODIUM 100 MG CAPSULE PO (08:14)
[2020-07-17] MEDS: LIDOCAINE 5% PATCH 2 PATCH TRANSDERM (08:15)
--- NOTE | 2020-07-17 08:28 | PCOTNOTE ---
Upon arrival nursing was attempting to give patient medication, but patient is non-responsive and unable to follow any instructions or cueing. Therapy session withheld this date, further therapy will be attempted at a later date.
[2020-07-17] MEDS: METOPROLOL TARTRATE INJ 5 MG/5 ML VIAL IV PUSH (09:08)
[2020-07-17] MEDS: POTASSIUM CHLORIDE 20 MEQ PACKET (FOR LIQUID) 40 MEQ PO (10:37)
[2020-07-17] MEDS: DIGOXIN INJ 250 MCG/ML 2 ML AMP (*BKC) 500 MCG IV PUSH (11:14)
--- NOTE | 2020-07-17 11:39 | PM.PNCARD ---
Progress Note: A&P Additional Plan 84-year-old female with: Paroxysmal atrial fibrillation which is essentially asymptomatic but creating concern. She is I believe postop day 8. Following surgery for hip fracture. I believe the plan for today was to consider discharge to a skilled care facility if no arrhythmias occurred but recurrent AFib this morning will apparently alter those plans. Intravenous amiodarone would probably be the ideal/preferred treatment at this time although that would require moving her to a critical care bed which is not available because of the vasquez virus pandemic. Hopefully IV digoxin loading today will help and convert her back to sinus rhythm. Prognosis appears poor Sp Staples MD [facility] Subjective Date/time seen: Date of service: 07/17/20 11:39 Interval history: Follow-up for: left hip fracture with postoperative atrial fibrillation. Converted to normal sinus rhythm 07/11/2020 at 12:27 p.m.. Recurrent episode of atrial fibrillation on 07/13/2020. Was started on beta-yu. Has maintained normal sinus rhythm with rare episodes of short burst. Date of service: 07/17/2020 As yesterday patient continues to be minimally responsive. Patient went back into atrial fib with RVR this morning. No evidence of hemodynamic embarrassment. As patient is unable to take any oral medicines at this time and since she is DNR I am electing to treat this on the floor with intravenous digoxin. Patient did receive 0.5 mg a short time ago and heart rate is improving. Patient is minimally responsive at this time and appears to be withdrawn but not in any distress Exam Narrative: Exam Narrative: PHYSICAL EXAMINATION: GENERAL: Elderly female sleeping in bed. Arouses easily. Confused EYES: Extraocular movements intact, pallor EARS: External ears appear normal. Hard of hearing NOSE: Normal and patent, no discharge MOUTH: Mucous membranes moist, tongue normal NECK: Supple, no JVD CHEST: decreased breath sounds, decreased effort HEART: Normal rate, regular rhythm without murmur ABDOMEN: Soft, nontender. Bowel sounds x4 quadrants. NEUROLOGICAL: somnolent . Answers simple questions but is not fully oriented. MUSCULOSKELETAL: left hip surgical wound EXTREMITIES: No pedal edema, no clubbing, no cyanosis SKIN: ecchymosis bilateral arms PSYCHIATRIC: calm, cooperative Const: General: comfortable, no acute distress and confusion Orientation/consciousness: confusion Other: Elderly white female with [place] sitting in chair responsive but very somnolent [facility]: Mouth: Yes moist mucous membranes and Yes dry mucous membranes Eyes: Sclera: sclerae normal Pupils: Equal, round and reactive pupils present EOM: EOMs intact bilaterally Neck: Neck: supple and no JVD Thyroid: thyroid normal Resp: Effort & Inspection: normal respiratory effort Auscultation: clear to auscultation bilaterally Cardio: Rate: regular rate and tachycardic Rhythm: abnormal rhythm irregularly irregular Heart sounds: Murmur heart sound present Other: 2/6 GENE upper sternal borders and apex GI: Inspection: non-distended Auscultation: normal bowel sounds Skin: General skin exam: normal color Other: Has ecchymosis on arms Neuro: General: confusion Cranial nerves: Yes Equal, round and reactive pupils present Cognition (Neuro): abnormal cognition (Appears confused, withdrawn) Other: Responsive but very lethargic as detailed above Extrem: General: normal to inspection, no edema and no pedal edema Psych: Mental Status: mental status grossly abnormal Affect: No normal affect Objective Data Vital Signs Vital Signs: Vital Signs - 24 hr 07/16/20 12:00 07/16/20 14:00 07/16/20 15:27 Temperature 36.8 C Pulse Rate 84 82 61 Respiratory Rate 16 Blood Pressure 110/60 Pulse Oximetry 100 07/16/20 15:32 07/16/20 16:00 07/16/20 18:00 Temperature 37.2 C 36.8 C Pulse Rate 82 79 Respiratory Rate 14 Blood
--- NOTE | 2020-07-17 12:46 | PCSTNOTE ---
ST attempted at 12:40 PM but pt is completely unresponsive and per RN, will be unable to participate in therapy.
--- NOTE | 2020-07-17 12:51 | PM.IMPN ---
Progress Note: A&P Assessment and Plan (1) Atrial fibrillation with RVR: Code(s): I48.91 - Unspecified atrial fibrillation Status: Acute Assessment and Plan: Cardiology following - appreciate recommendations. Metoprolol initiated 07/13. BPs lower yesterday thus metoprolol tartrate was switched to succinate this morning. A fib RVR around 7am today with pressures as low as 78/44. Appreciate Dr Staples's recommendations. She has received IV metoprolol x 2 and digoxin x 2 with some improvement in rate. Replace K+. Detailed discussion held over the phone with patient's son/POA, He, regarding his mother's poor prognosis and plan for further goals of care. He is interested in keeping his mother comfortable. He is going to speak with his sister, Enrique, because he is interested in speaking with hospice. Care coordination aware. (2) Intertrochanteric fracture of left femur: Qualifiers: Encounter type: initial encounter Fracture alignment: displaced Fracture type: closed Qualified Code(s): S72.142A - Displaced intertrochanteric fracture of left femur, initial encounter for closed fracture Code(s): S72.142A - Displaced intertrochanteric fracture of left femur, initial encounter for closed fracture Status: Acute Assessment and Plan: POD#8 s/p ORIF by Dr Arredondo 07/09/20. Wound care, DVT prophylaxis, pain control per Orthopedic recommendations. Monitor H&H while on Lovenox for prophylaxis. No signs or symptoms of acute bleeding. (3) UTI due to extended-spectrum beta lactamase (ESBL) producing Escherichia coli: Code(s): N39.0 - Urinary tract infection, site not specified; B96.29 - Other Escherichia coli [E. coli] as the cause of diseases classified elsewhere; Z16.12 - Extended spectrum beta lactamase (ESBL) resistance Status: Acute Assessment and Plan: Completed a 7-day course of IV ertapenem. (4) Chronic anemia: Code(s): D64.9 - Anemia, unspecified Status: Chronic Assessment and Plan: Received 1 unit packed RBC 07/12, Hgb improved and remaining stable in 9s. No signs of acute bleeding. Suspect anemia of chronic disease worsened with IV fluids and surgery. Continue monitor H&H and transfuse PRN. (5) Diastolic congestive heart failure: Qualifiers: Heart failure chronicity: chronic Qualified Code(s): I50.32 - Chronic diastolic (congestive) heart failure Code(s): I50.30 - Unspecified diastolic (congestive) heart failure Status: Chronic Assessment and Plan: Presumed diastolic dysfunction. Echocardiogram was ordered but patient was not able to cooperate to complete the study. Limited view shows EF 60-65%, moderate pulmonary hypertension. (6) Hypercholesterolemia: Code(s): E78.00 - Pure hypercholesterolemia, unspecified Status: Chronic Assessment and Plan: Plan to resume statin therapy at discharge. 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 Blood cultures pending with no growth to date. CT brain 07/11 with no acute findings. EMR report from Dr. Martines on 07/07 report the patient was confused at that time and was thought to be due to UTI. The patient was confused before the fall and son, He, confirms this. He describes she had a very slow recovery after surgery for right hip fracture last year. (8) Sepsis: Qualifiers: Sepsis type: sepsis due to unspecified organism Sepsis acute organ dysfun
[2020-07-17] MEDS: DIGOXIN INJ 250 MCG/ML 2 ML AMP (*BKC) IV PUSH (14:43)
--- NOTE | 2020-07-17 16:10 | PCCCNOTE ---
Spoke with Melissa who is with [facility]. Someone will be here to evaluate the patient for GIP within 30 min. Kena updated with this information
[2020-07-17] MEDS: SODIUM CHLORIDE 0.9% IV 1,000 ML 999 ML IV CONT ×2 (21:01→22:42)
--- NOTE | 2020-07-17 22:30 | PC.NURSE ---
spoke with Pt's son He regarding patients condition. Blood pressures 60's/30's with 1L of fluids. Wanting to see how aggressive family would like us to treat her blood pressure as they are leaning towards hospice care. Per Desirae Love we can give another liter of fluids and see how her blood pressure responds. He would like for her to have the fluids see if this improves and then they will make a decision on how to proceed this evening.
[2020-07-18] VITALS: PULSE 90
[2020-07-18 00:08] VITALS: BP 103/70
[2020-07-18 04:00] VITALS: PULSE 67
[2020-07-18 06:00] VITALS: BP 105/55; PULSE 79; RESP 16; TEMP 36.3; O2SAT 97
[2020-07-18 06:40] LABS: Anion Gap 7 mmol/L (8-16); Blood Urea Nitrogen 31 mg/dL (7-17); Calcium 8.5 mg/dL (8.4-10.2); Carbon Dioxide 20 mmol/L (22-30); Chloride 112 mmol/L (98-107); Estimated CRCL calculation 24 ml/min; Estimated Glomerular Filt Rate 43; Glucose 95 mg/dL (65-105); Potassium 3.9 mmol/L (3.4-5.0); Sodium 139 mmol/L (137-145)
[2020-07-18 08:00] VITALS: PULSE 75
[2020-07-18] MEDS: LIDOCAINE 5% PATCH 2 PATCH TRANSDERM (08:10)
[2020-07-18] MEDS: ENOXAPARIN 30 MG/0.3 ML SYRINGE SUB-Q (08:10)
--- NOTE | 2020-07-18 09:25 | PCOTNOTE ---
07/18/2020: Spoke with nursing regarding patient care; per nursing patient on comfort measures only
--- NOTE | 2020-07-18 09:47 | PCPTNOTE ---
Per RN: not to see patient for therapy due to patient on comfort measures only.
[2020-07-18 10:00] VITALS: BP 111/52; PULSE 74; RESP 16; TEMP 36.3; O2SAT 96
--- NOTE | 2020-07-18 10:46 | PM.DS ---
DS: Admitting Diagnosis Admitting Diagnosis Admitting Diagnosis: Left Hip Fracture DS: Discharge Diagnosis Discharge Diagnosis (1) Atrial fibrillation with RVR: Code(s): I48.91 - Unspecified atrial fibrillation Status: Acute Assessment and Plan: Date of Admission 07/07/20 Date of Discharge/DOS 07/18/20 Ms. Ovalle is an 84yo F with known paroxysmal atrial fibrillation, hypertension, hyperlipidemia, and diastolic heart failure who presented to the ED for evaluation of ambulatory dysfunction after a fall at assisted living. Imaging demonstrated comminuted intertrochanteric left hip fracture. CT brain with no acute intracranial abnormality. Orthopedic surgery was consulted and she was evaluated by Dr. Arredondo. She underwent ORIF left hip fracture with nail 07/09/[address] Arredondo. She experienced postoperative atrial fibrillation RVR and was evaluated by Cardiology. She was started on beta blockade with oral metoprolol tartrate with which she had some hypotension and was transitioned to metoprolol succinate. She was monitored with cardiac telemetry and rhythm would convert in and out of atrial fibrillation RVR. She remained profoundly weak and was total assist x2 with therapy. Weakness progressed over the week despite therapy and she stopped taking oral intake, became more lethargic. Additionally, she was treated with a 7 day course of IV ertapenem for ESBL E coli urinary tract infection. She also experienced postoperative anemia and received 1 unit blood transfusion 07/12, after which her Hgb remained stable. 07/17 rhythm went back into AFib RVR with blood pressures as low as 78/44. Cardiology treated with 2 doses of IV metoprolol and 2 doses of IV digoxin as she was too weak to swallow oral medications at that time. Detailed discussion held over the phone with patient's POA/son, He, regarding his mother's poor prognosis and plan for further goals of care. He was most interested keeping his mother comfortable. Ms. Ovalle was discharged to inpatient [facility] hospice on 07/18/20. (2) Intertrochanteric fracture of left femur: Qualifiers: Encounter type: initial encounter Fracture alignment: displaced Fracture type: closed Qualified Code(s): S72.142A - Displaced intertrochanteric fracture of left femur, initial encounter for closed fracture Code(s): S72.142A - Displaced intertrochanteric fracture of left femur, initial encounter for closed fracture Status: Acute Assessment and Plan: POD#9 s/p ORIF by Dr Arredondo 07/09/20. Wound care, DVT prophylaxis, pain control per Orthopedic recommendations. H&H was monitored while on Lovenox for prophylaxis. She demonstrated no signs or symptoms of acute bleeding. (3) UTI due to extended-spectrum beta lactamase (ESBL) producing Escherichia coli: Code(s): N39.0 - Urinary tract infection, site not specified; B96.29 - Other Escherichia coli [E. coli] as the cause of diseases classified elsewhere; Z16.12 - Extended spectrum beta lactamase (ESBL) resistance Status: Acute Assessment and Plan: Completed a 7-day course of IV ertapenem. (4) Chronic anemia: Code(s): D64.9 - Anemia, unspecified Status: Chronic Assessment and Plan: Received 1 unit packed RBC 07/12, Hgb improved and remained stable in 9s. No signs of acute bleeding. Suspect anemia of chronic disease worsened with IV fluids and surgery. (5) Diastolic congestive heart failure: Qualifiers: Heart failure chronicity: chronic Qualified Code(s): I50.32 - Chronic diastolic (congestive) heart failure Code(s): I50.30 - Unspecified diastolic (congestive) heart failure Status: Chronic Assessment and Plan: Presumed diastolic dysfunction. Echocardiogram was ord
--- NOTE | 2020-07-18 12:20 | PM.IMHP ---
H&P: HPI History of Present Illness Date/Time: 07/18/20 12:20 Chief complaint: Left Hip Fracture Narrative: Kathrin Ovalle is a 84 year old female Who was admitted [facility] due to IT Fx Lt Hip on 07/07. She underwent ORIF 07/09. She was treated for ESBL e coli UTI. Postoperatively she experience atrial fibrillation rapid ventricular rate. Following that she was confused and less responsive. She stopped eating and drinking. Because she was a [facility] resident with impaired cognition at baseline, her family opted for comfort care only. When evaluated on July 17 she was uncomfortable only with position changes. However on July 18 she is moaning at rest and fidgeting and somewhat restless. Prior to hospitalization she required assistance with all his activities of daily living including set up for feeding. Her memory was fairly good. She would occasional say off the wall pull things . Her appetite was good. PPS score was 40. Review of Systems Review of Systems: ROS unobtainable: Yes unobtainable due to medical condition PMFSH Past Medical History Medical History Anemia Appendicitis Bilateral cataracts Chronic bilateral thoracic back pain Chronic fatigue Chronic kidney disease, stage 3 (moderate) Confusion Dementia Diastolic congestive heart failure Eczema Gallbladder disease GI bleed Glaucoma Hx of adenomatous colonic polyps Hypercholesterolemia Hyperlipidemia Hypertension IBS (irritable bowel syndrome) Iron deficiency anemia Mild anemia OAB (overactive bladder) Orthostatic hypotension Orthostatic hypotension Osteoarthritis Paroxysmal atrial fibrillation Paroxysmal atrial fibrillation Status post cardioversion in 2014 x2. No longer on anticoagulation due to recurrent falls. Pneumonia Post menopausal syndrome Primary osteoarthritis of both knees Stenosis of right subclavian artery TIA (transient ischemic attack) Vitamin D deficiency Surgical History Surgical History H/O bilateral cataract extraction H/O cataract removal with insertion of prosthetic lens H/O eye surgery Bilateral retinas H/O: hysterectomy History of appendectomy History of appendectomy History of cholecystectomy History of cholecystectomy History of hysterectomy History of right shoulder replacement S/P left knee arthroscopy S/P right rotator cuff repair S/P right rotator cuff repair Family History Family History Father Family history of heart disease in male family member before age 55 Family history of cardiovascular disease Patient's father is Mother Family history of heart disease in male family member before age 55 Family history of cardiovascular disease Patient's mother is Sibling Family history of heart disease in male family member before age 55 Family history of cardiovascular disease Patient's sister is Social History Social History (Updated 07/18/20 @ 12:45 by Joel Bravo MD) Social History: The patient was at [facility] for rehab prior to moving to [facility] living in 2019. Prior to that, she was living independently in her own home. Her son and daughter, Yelena, are her surrogate decision makers. Smoking status: Never smoker Second hand tobacco smoke exposure: Yes Alcohol intake: former Drinks per week: 1 Substance use: never Substance use type: does not use Additional living arrangements comments: Pt lives at [facility]. Gender identity (if verbalized by the patient): Female Spiritual care concerns: No Agree to blood products: Yes Meds Home Medications and Allergies Home Medications Medication Instructions Recorded Confirmed Type acetaminophen 650 mg 650 mg PO QID PRN 06/27/19
[2020-07-18 17:56] LABS: Haptoglobin 292 mg/dL (43-212)
== END 2020-07-18 12:29 | disposition hospice, inpatient (51) | DRG 480 ==
LOC: ANHED 20:24 → ANH2MED 07-08 00:30
PROVIDERS: Internal Medicine; Nurse Practitioner; Orthopaedic Surgery; Physician Assistant; Admitting Provider Family Medicine; Emergency Provider Emergency Medicine; PCP Internal Medicine; Visit Provider Physician Assistant
PROC: 0QS736Z Reposition Left Upper Femur with Intramedullary Internal Fixation Device, Percutaneous Approach (ICD-10-PCS; CPT 27245; principal; 2020-07-09 14:30)
DX: S72.142A Displaced intertrochanteric fracture of left femur, initial encounter for closed fracture (principal); G93.41 Metabolic encephalopathy; A41.9 Sepsis, unspecified organism; I50.32 Chronic diastolic (congestive) heart failure; I13.0 Hypertensive heart and chronic kidney disease with heart failure and stage 1 through stage 4 chronic kidney disease, or unspecified chronic kidney disease; N39.0 Urinary tract infection, site not specified; Z16.12 Extended spectrum beta lactamase (ESBL) resistance; B96.29 Other Escherichia coli [E. coli] as the cause of diseases classified elsewhere; W01.0XXA Fall on same level from slipping, tripping and stumbling without subsequent striking against object, initial encounter; Z20.828 Contact with and (suspected) exposure to other viral communicable diseases; I48.0 Paroxysmal atrial fibrillation; E87.6 Hypokalemia; Z66 Do not resuscitate; E78.5 Hyperlipidemia, unspecified; N18.30 Chronic kidney disease, stage 3 unspecified; F03.90 Unspecified dementia, unspecified severity, without behavioral disturbance, psychotic disturbance, mood disturbance, and anxiety; D64.9 Anemia, unspecified; K58.9 Irritable bowel syndrome, unspecified; Z79.899 Other long term (current) drug therapy; Z86.73 Personal history of transient ischemic attack (TIA), and cerebral infarction without residual deficits; Z98.49 Cataract extraction status, unspecified eye; Z96.1 Presence of intraocular lens
CPT/HCPCS: 36415; 36430; 70450; 71045; 71046; 73502; 73562; 80048; 80053; 80076; 81001; 82607; 82728; 82746; 83010; 83540; 83550; 83605; 83615; 83735; 85014; 85018; 85025; 85027; 85055; 85610; 85730; 86140; 86850; 86900; 86901; 86923; 87040; 87077; 87086; 87088; 87186; 87635; 92610; 93005; 93308; 96374; 96375; 97110; 97162; 97165; 97530; 99285; A9270; C1713; C1769; C9803; J0131; J0690; J1100; J1160; J1170; J1335; J1650; J1885; J1940; J2060; J2370; J2405; J2543; J2704; J3010; J3480; J7030; J7040; J7050; J7120; P9016; U0003

== ENCOUNTER 2020-07-18 11:00 | HOS | payer OTHER, SELFPAY ==
--- NOTE | 2020-07-18 12:20 | HP_ITS ---
This report was moved to the correct visit, [id number] on 07/27/2020. Original report was signed by Joel Bravo MD on 07/18/20 1248. H&P: HPI History of Present Illness Date/Time: 07/18/20 12:20 Chief complaint: Left Hip Fracture Narrative: Kathrin Ovalle is a 84 year old female Who was admitted [facility] due to IT Fx Lt Hip on 07/07. She underwent ORIF 07/09. She was treated for ESBL e coli UTI. Postoperatively she experience atrial fibrillation rapid ventricular rate. Following that she was confused and less responsive. She stopped eating and drinking. Because she was a senior care resident with impaired cognition at baseline, her family opted for comfort care only. When evaluated on July 17 she was uncomfortable only with position changes. However on July 18 she is moaning at rest and fidgeting and somewhat restless. Prior to hospitalization she required assistance with all his activities of daily living including set up for feeding. Her memory was fairly good. She would occasional say off the wall pull things . Her appetite was good. PPS score was 40. Review of Systems Review of Systems: ROS unobtainable: Yes unobtainable due to medical condition PMFSH Past Medical History Medical History Anemia Appendicitis Bilateral cataracts Chronic bilateral thoracic back pain Chronic fatigue Chronic kidney disease, stage 3 (moderate) Confusion Dementia Diastolic congestive heart failure Eczema Gallbladder disease GI bleed Glaucoma Hx of adenomatous colonic polyps Hypercholesterolemia Hyperlipidemia Hypertension IBS (irritable bowel syndrome) Iron deficiency anemia Mild anemia OAB (overactive bladder) Orthostatic hypotension Orthostatic hypotension Osteoarthritis Paroxysmal atrial fibrillation Paroxysmal atrial fibrillation Status post cardioversion in 2014 x2. No longer on anticoagulation due to recurrent falls. Pneumonia Post menopausal syndrome Primary osteoarthritis of both knees Stenosis of right subclavian artery TIA (transient ischemic attack) Vitamin D deficiency Surgical History Surgical History H/O bilateral cataract extraction H/O cataract removal with insertion of prosthetic lens H/O eye surgery Bilateral retinas H/O: hysterectomy History of appendectomy History of appendectomy History of cholecystectomy History of cholecystectomy History of hysterectomy History of right shoulder replacement S/P left knee arthroscopy S/P right rotator cuff repair S/P right rotator cuff repair Family History Family History Father Family history of heart disease in male family member before age 55 Family history of cardiovascular disease Patient's father is Mother Family history of heart disease in male family member before age 55 Family history of cardiovascular disease Patient's mother is Sibling Family history of heart disease in male family member before age 55 Family history of cardiovascular disease Patient's sister is Social History Social History (Updated 07/18/20 @ 12:45 by Joel Bravo MD) Social History: The patient was at [facility] for rehab prior to moving to [facility] in 2019. Prior to that, she was living independently in her own home. Her son and daughter, Yelena, are her surrogate decision makers. Smoking status: Never smoker Second hand tobacco smoke exposure: Yes Alcohol intake: former Drinks per week: 1 Substance use: never Substance use t
--- NOTE | 2020-07-18 12:50 | ADMGEN ---
Patient admitted to [facility] 07/18/2020 at 1250. This patient, Kathrin Ovalle, was admitted to 2 Medical Room 248-01. Patient/family oriented to hospital policies and general routines including ID bracelet, bed and alarms, visiting hours, pain management, procedures, bathroom and other care routines, personal items, smoking policy, room service/diet, and visiting hours. Information on how to activate the Rapid Response Team has been discussed. Patient/Family are encouraged to report perceived risks to care and to ask questions if they do not understand what they are told or what they should do.
[2020-07-18 13:02] VITALS: BMI 20.2
[2020-07-18 13:15] VITALS: BP 111/52; PULSE 74; RESP 16; TEMP 36.3; O2SAT 96
[2020-07-18] MEDS: MORPHINE SULFATE INJ (*CRX) 50 MG in SODIUM CHLORIDE 0.9% IV 95 ML IV CONT (13:43)
[2020-07-18 22:00] VITALS: BP 86/49; PULSE 89; RESP 16; TEMP 36.3; O2SAT 96
[2020-07-19 06:00] VITALS: BP 94/48; PULSE 79; RESP 16; TEMP 36.4; O2SAT 95
[2020-07-19 08:00] VITALS: BP 108/49; PULSE 104; RESP 22; TEMP 37.2; O2SAT 98
[2020-07-19] MEDS: MORPHINE SULFATE INJ (*CRX) 50 MG in SODIUM CHLORIDE 0.9% IV 95 ML IV CONT (14:06)
--- NOTE | 2020-07-19 17:58 | P.PNIM_ITS ---
Progress Note: A&P Assessment and Plan (1) Palliative care by specialist: Code(s): Z51.5 - Encounter for palliative care Status: Acute Assessment and Plan: * GIP status required due to uncontrolled pain and restlessness at rest, requiring IV medication for control * Continue IV morphine infusion * Other palliative medications as ordered (2) Cerebrovascular disease: Code(s): I67.9 - Cerebrovascular disease, unspecified Status: Acute (3) Vascular dementia without behavioral disturbance: Code(s): F01.50 - Vascular dementia without behavioral disturbance Status: Acute (4) Diastolic congestive heart failure: Qualifiers: Heart failure chronicity: chronic Qualified Code(s): I50.32 - Chronic diastolic (congestive) heart failure Code(s): I50.30 - Unspecified diastolic (congestive) heart failure Status: Chronic Subjective Date/time seen: 07/19/20 17:58 Interval history: 07/19: Comfortable today. No PO intake. Review of Systems Review of Systems: ROS unobtainable: Yes unobtainable due to medical condition Exam Narrative: Exam Narrative: HEENT: sclerae nonicteric NECK: No JVD CHEST: Clear to auscultation. Normal effort. HEART: NL S1/S2, regular, no murmur ABDOMEN: BS+, soft, nontender, no mass, no bruits EXTREMITIES: No cyanosis, edema, or clubbing NEUROLOGIC: CN intact and symmetric to inspection. MUSCULOSKELETAL: Tone and strength symmetric. PSYCH: Drowsy. Arouses to name. Objective Data Vital Signs Vital Signs: Vital Signs - 24 hr 07/18/20 22:00 07/19/20 06:00 07/19/20 08:00 Temperature 97.4 F L 97.6 F 98.9 F Pulse Rate 89 79 104 H Respiratory Rate 16 16 22 H Blood Pressure 86/49 L 94/48 L 108/49 L Pulse Oximetry 96 95 98 Intake/Output Intake/Output: Intake & Output 07/16/20 07/17/20 07/18/20 07/19/20 23:59 23:59 23:59 23:59 Intake Total 23.5 Output Total 850 Balance -826.5 Meds/Results Medications: Active Medications Generic Name Dose Route Start Last Admin Trade Name Freq PRN Reason Stop Dose Admin Acetaminophen 650 mg 07/18/20 13:16 Acetaminophen 650 Mg Suppository RECTAL Q4H PRN Fever Artificial Tears 1 drop 07/18/20 13:18 Artificial Tears Op Soln 15 Ml Bottle EACH EYE Q4H PRN Dry Eye(s) Bisacodyl 10 mg 07/18/20 13:17 Bisacodyl 10 Mg Suppository RECTAL DAILY PRN Constipation Glycopyrrolate 0.1 mg 07/18/20 13:20 Glycopyrrolate Inj (*Sp) 0.2 Mg/Ml Vial IV PUSH Q4H PRN INCREASED SECRETIONS Morphine Sulfate 50 mg/ Sodium 100 mls @ 1 mls/hr 07/18/20 13:15 07/19/20 14:06 Chloride IV CONT 0.5 mg/hr .Q24H IAIN 1 mls/hr Administration 0.5 MG/HR Lorazepam 1 mg 07/18/20 13:16 Lorazepam Inj (*Crx) 2 Mg/Ml Vial IV PUSH Q4H PRN Anxiety Morphine Sulfate 1 mg 07/18/20 13:15 Morphine Sulfate (*Crx) 2 Mg/Ml Inj IV PUSH Q2H PRN Pain Prochlorperazine Edisylate 10 mg 07/18/20 13:20 Prochlorperazine Edisylate 10 Mg/2 Ml Vial IV PUSH Q4H PRN Nausea And Vomiting
[2020-07-19 20:00] VITALS: BP 105/57; PULSE 83; RESP 18; TEMP 37.2; O2SAT 97
[2020-07-20] MEDS: LORazepam INJ (*CRX) 2 MG/ML VIAL 1 MG IV PUSH (07:26)
[2020-07-20] MEDS: GLYCOPYRROLATE INJ (*SP) 0.2 MG/ML VIAL 0.1 MG IV PUSH (09:47)
[2020-07-20] MEDS: MORPHINE SULFATE (*CRX) 2 MG/ML INJ 1 MG IV PUSH (09:48)
[2020-07-20 10:00] VITALS: BP 99/56; PULSE 119; RESP 18; TEMP 37; O2SAT 57
[2020-07-20] MEDS: MORPHINE SULFATE INJ (*CRX) 50 MG in SODIUM CHLORIDE 0.9% IV 95 ML IV CONT (14:55)
--- NOTE | 2020-07-20 17:45 | PC.NURSE ---
Daughter at bedside and called staff to room. Patient with no respirations or heartrate. Daughter given emotional support. Charge nurse pronounced patient. [facility] called by charge nurse.
--- NOTE | 2020-07-20 21:34 | PCDIET ---
2100 patient to [facility]nan per ellie. home notified
--- NOTE | 2020-07-21 09:23 | PM.DDS ---
Discharge Sum: Prov Provider Primary care physician: Khanh Martines DO Admitting provider: Joel Bravo MD Discharge Sum: Diag Contributing Factors (1) Cerebrovascular disease: (2) Vascular dementia without behavioral disturbance: (3) Atrial fibrillation: (4) Diastolic congestive heart failure: Discharge Sum: Summary Date and Time Date of admission: 07/18/20 12:30 Summary Details: Admitted for symptom management due to uncontrolled pain and restlessness. Medication was titrated to comfort. Patient peacefully. Additional Data Attending physician: Joel Bravo MD
== END 2020-07-20 21:00 | disposition expired | DRG 951 ==
PROVIDERS: Admitting Provider Internal Medicine; PCP Internal Medicine; Visit Provider Internal Medicine
DX: Z51.5 Encounter for palliative care (principal); I50.32 Chronic diastolic (congestive) heart failure; I13.0 Hypertensive heart and chronic kidney disease with heart failure and stage 1 through stage 4 chronic kidney disease, or unspecified chronic kidney disease; N18.30 Chronic kidney disease, stage 3 unspecified; F01.50 Vascular dementia, unspecified severity, without behavioral disturbance, psychotic disturbance, mood disturbance, and anxiety; I67.9 Cerebrovascular disease, unspecified; I48.91 Unspecified atrial fibrillation; S72.142D Displaced intertrochanteric fracture of left femur, subsequent encounter for closed fracture with routine healing; Z98.890 Other specified postprocedural states
CPT/HCPCS: A9270; J2060; J2270